=== PATIENT | female | born 1985 | race Caucasian/White ===

== ENCOUNTER 2019-08-06 19:30 | Emergency (ER) | payer OTHER, SELFPAY | END 2019-08-06 22:30 | disposition home or self-care (01) | PROVIDERS: Emergency Provider Family Medicine; Family Provider Family Medicine; Visit Provider Family Medicine | DX: J00 Acute nasopharyngitis [common cold] (principal); J04.0 Acute laryngitis; K21.9 Gastro-esophageal reflux disease without esophagitis | CPT/HCPCS: 71046; 87804 ×2; 96372; 99284; J1100 ==

== ENCOUNTER 2019-08-09 17:18 | Emergency (ER) | payer SELFPAY ==
[2019-08-09 18:36] VITALS: BP 133/90; PULSE 105; RESP 18; TEMP 36.7; O2SAT 98; BMI 38.7
--- NOTE | 2019-08-09 20:01 | ED_ITS ---
Entered by Lashonda Zamora, acting as scribe for Aug 09, 2019 17:18 HPI - Headache General: Chief Complaint: Headache Stated Complaint: ear clogged, reyna x3 days Time Seen by Provider: 08/09/19 20:00 Source: patient Mode of arrival: ambulatory Limitations: no limitations History of Present Illness: HPI Narrative: 33 yo female presents with cough and congestion. pt states this started 3 days ago. pt has had a headache. pt states she was seen a few days ago in the ED and they put her on a Zpac but no relief when finished. pt has had ear pain and clogged ears. pt denies any other symptoms at this time. MD elicited complaint: headache Onset (ago): day(s) (3 days ago) Onset description: gradually Severity: moderate Quality & Timing: throbbing Exacerbating factors: none Relieving factors: nothing Context: occurred at rest Associated symptoms: Reports cough and other (congestion); Deny chest pain, fever(s), nausea, rash or vomiting Treatments prior to arrival: acetaminophen Review of Systems Const: Denies: fever or chills Eyes: Reports: eye discharge; Denies: change in vision ENMT: Reports: ear pain; Denies: throat pain or mouth pain Card: Denies: chest pain Resp: Denies: shortness of breath GI: Denies: abdominal pain, nausea, vomiting or diarrhea : Denies: difficulty urinating Musc: Denies: back pain or joint pain Skin/Breast: Denies: rash Neuro: Reports: headache; Denies: behavioral changes Psych: Denies: depression Endo: Denies: excessive urination Denny/Lymph: Denies: easy bruising All/Imm: Denies: hives PFSH ED PFSH: Statuses (acute, chronic, etc) shown below reflect problem list status as previously entered and may not be historically accurate Social History Smoking and tobacco status: never smoked Female Reproductive History: Date of last menstrual period: 07/31/19 Physical Exam Const: COMMON NORMALS: no apparent distress and healthy appearing HENMT: COMMON NORMALS: normocephalic and external nose normal HEAD & SCALP: normocephalic NOSE: external nose normal and no nasal discharge (nasal dischage) OTHER: Left tympanic membrane is red with fluid behind ear. Also has tenderness over sinuses. Eye: COMMON NORMALS: PERRL PUPIL: Yes PERRL Neck/C-Spine: COMMON NORMALS: full ROM and no lymphadenopathy Chest: COMMONS NORMALS: inspection of chest normal Resp: COMMON NORMALS: normal respiratory effort and clear to auscultation bilaterally AUSCULTATION: clear to auscultation bilaterally Cardio: COMMON NORMALS: regular rate and regular rhythm RATE: regular rate RHYTHM: regular rhythm GI: COMMON NORMALS: soft to palpation PALPATION: Yes soft Extremity: COMMON NORMALS: normal to inspection, full ROM and normal capillary refill Psych: COMMON NORMALS: mental status grossly normal and cooperative Skin: COMMON NORMALS: no rashes or lesions noted GENERAL SKIN EXAM: no rashes or lesions noted Course Vital Signs: Vital signs: Vital Signs Temperature 98.0 F 08/09/19 18:36 Pulse Rate 105 H 08/09/19 18:36 Respiratory Rate 18 08/09/19 18:36 Blood Pressure 133/90 08/09/19 18:36 Pulse Oximetry 98 08/09/19 18:36 MDM - Headache MDM Narrative: Medical decision making narrative: Patient presents here with headache likely from sinusitis. Patient is well-appearing here and is stable for discharge. Patient has no signs of meningitis or subarachnoid hemorrhage. We will place her on Keflex. She is to take a decongestant along with Benadryl. Discharge Plan Discharge Patient Disposition: Home, Self-Care Clinical Impression: Acute otitis media, left Sinusitis Qualifiers: Sinusitis location: frontal Chronicity: acute Recurrence: non-recurrent Qualified Code(s): J01.10 - Acute frontal sinusitis, unspecified Headache Qualifiers: Headache type: tension-type Condition: Stable Prescriptions: New Keflex 500 mg capsule 500 mg PO Q6H 7 Days Qty: 28 RF: 0 EC-Naprosyn 500 mg tablet,delayed release (DR/EC) 500 mg PO BID PRN (Reason: pain) Qty: 20 RF: 0 No Action Pending RF: 0 Discharge Orders: Discharge Order (Routine); Ordered 08/09/19 Ordered By: Teresa Deluca Referrals: Molina Ojeda MD [Primary Care Provider] - (in 3-5 days) Discharge Diet: Advance as tolerated Discharge Activity: Resume usual activity Patient Instructions: Sinusitis (ED) Coding Level of Care Code ED Zoning Assistant for Chg Fwd The documentation recorded by the Noah alonso Bridget Annette, accurately reflects the service I personally performed and the decisions made by me, Teresa Deluca MD Aug 09, 2019 17:18
[2019-08-09 20:11] VITALS: BP 136/87; PULSE 108; RESP 16; O2SAT 97
[2019-08-09] MEDS: ketorolac 60 mg/2 mL INJ IM (20:22)
[2019-08-09] MEDS: dexamethasone 10 mg/mL INJ IM (20:22)
[2019-08-09] MEDS: diphenhydrAMINE 50 mg/mL SDV 1mL IM (20:22)
[2019-08-09 20:27] VITALS: BP 137/84; PULSE 116; RESP 16; TEMP 36.8; O2SAT 97
== END 2019-08-09 20:29 | disposition home or self-care (01) ==
PROVIDERS: Emergency Provider Emergency Medicine; Family Provider Family Medicine; PCP Family Medicine
DX: G44.209 Tension-type headache, unspecified, not intractable (principal); J01.10 Acute frontal sinusitis, unspecified; H66.92 Otitis media, unspecified, left ear
CPT/HCPCS: 96372; 99281; J1100; J1200; J1885

== ENCOUNTER 2020-02-10 11:10 | Emergency (ER) | payer SELFPAY ==
--- NOTE | 2020-02-10 11:17 | XRR_ITS ---
PROCEDURE INFORMATION: Exam: XR Right Ankle Exam date and time: 02/10/2020 11:18 AM Age: 34 years old Clinical indication: Pain; Ankle; Right; Additional info: Injury, fall, abrasion on hay[place] TECHNIQUE: Imaging protocol: XR Right ankle. Views: 3 or more views. COMPARISON: No relevant prior studies available. FINDINGS: Bones/joints: Mixed density 1.6 cm lesion in the lateral malleolus which could represent fibrous dysplasia versus cartilaginous lesion versus other lesion. Correlation with nonemergent MRI may be helpful. Soft tissues: Normal. XR/XR ankle RT min 3V* [id number] IMPRESSION: 1. Mixed density 1.6 cm lesion in the lateral malleolus which could represent fibrous dysplasia versus cartilaginous lesion versus other lesion. Correlation with nonemergent MRI may be helpful. 2. No acute findings.
--- NOTE | 2020-02-10 11:17 | XRR_ITS ---
PROCEDURE INFORMATION: Exam: XR Left Knee Exam date and time: 02/10/2020 12:10 PM Age: 34 years old Clinical indication: Injury or trauma; Fall; Initial encounter; Abrasion; Knee; Right; Injury date: Today TECHNIQUE: Imaging protocol: XR Left knee. Views: 3 views. COMPARISON: No relevant prior studies available. FINDINGS: Bones/joints: Normal. Soft tissues: Normal. XR/XR knee LT 3V* [id number] IMPRESSION: No acute findings.
[2020-02-10 11:18] VITALS: BP 116/67; PULSE 90; RESP 18; TEMP 36.6; O2SAT 97; BMI 33.9
--- NOTE | 2020-02-10 11:52 | W.ED.EXTPRO ---
HPI - Extremity Problem General: Chief complaint: Extremity Injury, Lower Stated complaint: left knee pain/injury Time Seen by Provider: 02/10/20 11:43 Source: patient Mode of arrival: ambulatory Limitations: no limitations History of Present Illness: HPI Narrative: 34-year-old female who states she fell last night at a [employer] show. She states she twisted her right ankle very slightly but then she fell on her right knee twisting it and landing on the knee. She states she has had pain along with instability in that knee since the fall. She states is much worse when she tries to bear weight. Denies any other injuries. Complaint: extremity pain Onset (ago): day(s) Pain Consistency: constant Location: left Severity scale (1-10): 6 Relieving factors: immobilization Exacerbating factors: weight bearing Associated symptoms: Deny chest pain, fever(s) or rash Review of Systems Const: Denies: fever(s), chills, body aches or change in appetite Eyes: Denies: blurry vision or eye discomfort ENMT: Denies: throat pain or dental pain Card: Denies: chest pain Resp: Denies: dyspnea GI: Denies: abdominal pain, nausea, vomiting or diarrhea : Denies: dysuria Musc: Reports: joint pain; Denies: neck pain or back pain Skin/Breast: Denies: rash Neuro: Denies: headache(s) Psych: Denies: depression Denny/Lymph: Denies: easy bruising All/Imm: Denies: urticaria PFSH ED PFSH: Social History Smoking and tobacco status: never smoked Alcohol intake: never Substance/Drug Use: never Female Reproductive History: Date of last menstrual period: 01/30/20 Physical Exam Const: COMMON NORMALS: no acute distress, patient oriented x3 and healthy appearing HENMT: COMMON NORMALS: normocephalic and atraumatic HEAD & SCALP: normocephalic and atraumatic Eye: COMMON NORMALS: Equal, round and reactive pupils present and EOMs intact bilaterally PUPIL: Yes Equal, round and reactive pupils present Neck/C-Spine: COMMON NORMALS: full ROM and supple Chest: COMMONS NORMALS: normal inspection of the chest and normal palpation of entire chest wall Resp: COMMON NORMALS: normal respiratory effort, No retractions, No use of accessory muscles and clear to auscultation bilaterally AUSCULTATION: clear to auscultation bilaterally Cardio: COMMON NORMALS: regular rate, regular rhythm and No murmurs present (Cardio) RATE: regular rate RHYTHM: regular rhythm GI: COMMON NORMALS: Normal to inspection, nondistended, normoactive bowel sounds present, Soft to palpation, non-tender and no masses PALPATION: Yes Soft to palpation Extremity: COMMON NORMALS: normal to inspection NARRATIVE EXTREMITY EXAM: Abrasion to left knee along with tenderness and slight swelling. She does have pain with range of motion. Very minimal pain to right ankle and very slight swelling. She is able to bear weight on the right ankle. No hip tenderness. Neuro: COMMON NORMALS: patient oriented x3, moves all extremities and no focal motor deficits Psych: COMMON NORMALS: mental status grossly normal, Normal thought process present and cooperative THOUGHT PROCESS: Normal thought process present Skin: COMMON NORMALS: no rashes or lesions noted and no wounds GENERAL SKIN EXAM: no rashes or lesions noted Course Vital Signs: Vital signs: Vital Signs Temperature 98 F 02/10/20 11:18 Pulse Rate 90 02/10/20 11:18 Respiratory Rate 18 02/10/20 11:18 Blood Pressure 116/67 02/10/20 11:18 Pulse Oximetry 97 02/10/20 11:18 MDM - Extremity (Nontraumatic) MDM Narrative: Medical decision making narrative: Patient presents here with right knee sprain from a fall. Patient's x-rays here are negative. Will place in a knee immobilizer and she is to follow-up with orthopedics in 2 to 4 days. Imaging Data^: xr l knee: Attestation: I personally reviewed and interpreted this imaging study as follows: My impression: no acute abnormality x r ankle: Attestation: I personally reviewed and interpreted this imaging study as follows: My impression: no acute abnormality Discharge Plan Discharge Patient Disposition: Home, Self-Care Clinical Impression: Left knee sprain Qualifiers: Encounter type: initial encounter Involved ligament of knee: unspecified ligament Qualified Code(s): S83.92XA - Sprain of unspecified site of left knee, initial encounter Condition: Stable Prescriptions: New Naprosyn 500 mg tablet 500 mg PO BID PRN (Reason: pain) Qty: 20 RF: 0 No Action Pending RF: 0 EC-Naprosyn 500 mg tablet,delayed release (DR/EC) 500 mg PO BID PRN (Reason: pain) Qty: 20 RF: 0 Discharge Orders: Discharge Order (Routine); Ordered 02/10/20 Ordered By: Teresa Deluca Referrals: Dario Monroy MD [Physician] - 1-3 days Molina Ojeda MD [Primary Care Provider] - Discharge Diet: Advance as tolerated Discharge Activity: Resume usual activity Patient Instructions: Knee Sprain (ED), Knee Immobilizer (ED) Stand Alone Forms: Work/School Release Coding Level of Care Code ED Health And Social Care Teacher for Chg Fwd Exam Comprehensive
[2020-02-10 12:42] VITALS: PULSE 87; RESP 18; O2SAT 97
--- NOTE | 2020-02-11 09:55 | DCPLANNER ---
oracle database manager had message to schedule a follow up appointment for patient with ortho. oracle database manager called the ortho clinic, spoke with Pat, gave clinic patients information. oracle database manager was told that patients information would be printed and reviewed. Clinic will call patient with appointment information.
--- NOTE | 2020-02-18 15:04 | DCPLANNER ---
Patient has a follow up appointment scheduled for Wednesday, February 19, [address] at 9:[address] Monroy. Clinic will call patient with appointment information.
--- NOTE | 2020-02-20 15:11 | DCPLANNER ---
Patient did attend appointment scheduled for 02.19.20 with ortho.
== END 2020-02-10 12:44 | disposition home or self-care (01) ==
PROVIDERS: Emergency Provider Emergency Medicine; PCP Family Medicine
DX: S83.92XA Sprain of unspecified site of left knee, initial encounter (principal); X50.1XXA Overexertion from prolonged static or awkward postures, initial encounter
CPT/HCPCS: 12345; 29530; 73562; 73610; 99281; 99283; E0114

== ENCOUNTER 2020-02-27 11:01 | Outpatient (CLI) | payer BC, SELFPAY ==
--- NOTE | 2020-02-27 11:10 | MR_ITS ---
WS: [id number] MRI LEFT KNEE NONCONTRAST TECHNIQUE: Axial PD, coronal PD fat sat, coronal PD, sagittal PD, and sagittal PD fat-sat images obta ined. CLINICAL INFORMATION: KNEE INJURY, EFFUSION OF LEFT KNEE COMPARISON: None. FINDINGS: Normal anterior cruciate ligament. Normal PCL. Distal quadriceps and patella tendons are intact. Diff use subchondral edema involving the lateral tibial plateau with tibial plateau osteochondral fracture measuring 1.7 x 0.5 CM. Edema involving the lateral tibial plateau. Medial tibial plateau is normal. Normal bone marrow signal in the lateral femoral condyle. Medial and lateral meniscus are normal. Medial and lateral collateral ligaments are intact. Slightly hypertrophic patella. Normal patella car tilage. No subchondral edema. Mild soft tissue edema about the tibial plateau. MR/MR knee LT wo con* [id number] IMPRESSION: 1. Osteochondral fracture involving the lateral tibial plateau measuring 1.7 x 0.5 cm AP by transverse. Moderate diffuse edema involving the lateral tibial p lateau. No significant depression. 2. Anterior and posterior cruciate ligaments are intact. 3. Medial and lateral meniscus are intact. 4. Mild soft tissue edema about the joint line.
== END 2020-02-27 11:02 | disposition home or self-care (01) ==
LOC: RADWPI 11:10
PROVIDERS: Family Provider Family Medicine; PCP Family Medicine; Visit Provider Orthopaedic Surgery
DX: S82.142A Displaced bicondylar fracture of left tibia, initial encounter for closed fracture; S89.92XA Unspecified injury of left lower leg, initial encounter; X58.XXXA Exposure to other specified factors, initial encounter; M25.462 Effusion, left knee; R60.9 Edema, unspecified
CPT/HCPCS: 73721

== ENCOUNTER → 2020-04-01 10:11 | Outpatient (BNVA) | payer BC, SELFPAY | PROVIDERS: Family Provider Family Medicine; PCP Family Medicine; Visit Provider Orthopaedic Surgery | DX: S82.122D Displaced fracture of lateral condyle of left tibia, subsequent encounter for closed fracture with routine healing (principal); W19.XXXD Unspecified fall, subsequent encounter | CPT/HCPCS: 73562 ==

== ENCOUNTER 2020-10-14 12:00 | Outpatient (CLI) | payer BC, SELFPAY | END 2020-10-14 12:01 | disposition home or self-care (01) | LOC: SLEEP 10-22 16:06 | PROVIDERS: Family Provider Family Medicine; PCP Family Medicine; Visit Provider Family Medicine | DX: G47.10 Hypersomnia, unspecified (principal); R06.83 Snoring; R53.83 Other fatigue; G47.33 Obstructive sleep apnea (adult) (pediatric) | CPT/HCPCS: G0399 ==

== ENCOUNTER 2021-02-04 00:14 | Emergency (ER) | payer BC, SELFPAY ==
[2021-02-04 00:42] VITALS: BP 134/83; PULSE 100; RESP 16; TEMP 37; O2SAT 99; BMI 42.7
--- NOTE | 2021-02-04 01:25 | XRR_ITS ---
PROCEDURE INFORMATION: Exam: XR Chest Exam date and time: 02/04/2021 1:25 AM Age: 35 years old Clinical indication: Dyspnea; Additional info: SOB and chest tightness TECHNIQUE: Imaging protocol: XR of the chest. Views: 1 view. COMPARISON: CR Chest 2 views* [id number] 08/06/2019 8:02 PM FINDINGS: Lungs: There are multiple calcified pulmonary nodules consistent with prior granulomatous disease. Pleural spaces: Unremarkable. No pleural effusion. No pneumothorax. Heart/Mediastinum: Unremarkable. No cardiomegaly. Bones/joints: Unremarkable. XR/XR chest 1V portable [id number] IMPRESSION: No acute disease.
--- NOTE | 2021-02-04 01:25 | ECG_ITS ---
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 Measurements Intervals [place] Rate: 82 P: 76 IL: 134 QRS: 54 QRSD: 84 T: 21 QT: 375 QTc: 439 Interpretive Statements SINUS RHYTHM No previous ECG available for comparison Electronically Signed On 02-05-2021 7:04:30 CDT by Eva Esqueda M.D. [email or web address]
--- NOTE | 2021-02-04 01:26 | ED_ITS ---
HPI - Extremity Problem General: Chief complaint: Extremity Injury, Lower Stated complaint: swollen feet, back pain, headache, sob Time Seen by Provider: 02/04/21 00:15 History of Present Illness: HPI Narrative: Patient is a 35-year-old female comes to the ED with bilateral lower extremity swelling and pain and shortness of breath/chest tightness. This weekend patient says she was at the [place] [employer] and she had to walk from 1 side of the stadium to the other side and states that she developed some shortness of breath that seemed more than usual. That occurred approximately 2 days ago and she says she has had some shortness of breath and chest tightness ever since. She says the chest tightness and shortness of breath gets worse when she gets up and moves around. She also reports that since she was at the [employer] she has bilateral lower extremity swelling and pain. She says the bilateral lower extremity pain is described as pain due to the tightness in her skin from all the swelling. Patient does endorse having history of anxiety and panic attacks. Associated symptoms: Reports chest pain (chest tightness); Deny fever(s) or rash Review of Systems Const: Denies: fever(s), chills or fatigue Eyes: Denies: change in vision or eye discomfort ENMT: Denies: throat pain, odynophagia, nasal discharge or nasal congestion Card: Reports: chest pain (chest tightness) and edema (Bilateral lower extremity edema); Denies: palpitations, swelling of feet/ankles, dyspnea on exertion or orthopnea Resp: Reports: dyspnea (when active or upon exertion); Denies: productive cough or non-productive cough GI: Denies: abdominal pain, nausea, vomiting, diarrhea, constipation or hematochezia : Denies: flank pain, dysuria or hematuria Musc: Reports: extremity pain (Bilateral lower extremity) and extremity swelling (Bilateral lower extremity); Denies: neck pain or back pain Skin/Breast: Denies: rash or new lesions Neuro: Denies: headache(s), numbness in extremities or weakness in extremities PFS ED PFSH: Social History Smoking and tobacco status: never smoked Alcohol intake: never Female Reproductive History: Date of last menstrual period: 01/19/21 Physical Exam Const: COMMON NORMALS: no acute distress, patient oriented x3 and alert GENERAL APPEARANCE: cooperative and comfortable NUTRITIONAL APPEARANCE: obese HENMT: COMMON NORMALS: normocephalic HEAD & SCALP: normocephalic MOUTH: Normal oral and palatal mucosa present THROAT: posterior oropharynx normal and uvula midline Neck/C-Spine: COMMON NORMALS: supple GENERAL: Yes normal visual inspection Resp: COMMON NORMALS: normal respiratory effort, No retractions, No use of accessory muscles and clear to auscultation bilaterally AUSCULTATION: clear to auscultation bilaterally Cardio: COMMON NORMALS: regular rate, regular rhythm, S1 normal heart sound present, S2 normal heart sound present, No gallops present (Cardio), No clicks present (Cardio), No murmurs present (Cardio) and Peripheral pulses 2+ throughout RATE: regular rate RHYTHM: regular rhythm HEART SOUNDS: S1 normal heart sound present and S2 normal heart sound present PERIPHERAL PULSES: Peripheral pulses 2+ throughout GI: COMMON NORMALS: Normal to inspection, nondistended, normoactive bowel sounds present, Soft to palpation, non-tender and no masses PALPATION: Yes Soft to palpation : COMMON NORMALS: Yes no CVA tenderness BLADDER/KIDNEY EXAM: Yes no CVA tenderness Back/Pelvis: COMMON NORMALS: no CVA tenderness Extremity: COMMON NORMALS: no calf tenderness GENERAL: Yes edema (Bilateral lower extremity 1+ pitting edema) Neuro: COMMON NORMALS: patient oriented x3 and moves all extremities SENSORIUM/ORIENTATION: Yes alert Skin: GENERAL SKIN EXAM: dry skin Course Reevaluation(s): Reevaluation #1: After patient received some Ativan here in the ED she said her chest pain and shortness of breath improved greatly. Vital Signs: Vital signs: Vital Signs Temperature 98.6 F 02/04/21 00:42 Pulse Rate 87 02/04/21 02:17 Respiratory Rate 17 02/04/21 02:17 Blood Pressure 135/88 02/04/21 02:17 Pulse Oximetry 97 02/04/21 02:17 MDM - Extremity (Nontraumatic) MDM Narrative: Medical decision making narrative: Patient is a 35-year-old female comes to the ED with bilateral lower extremity edema, shortness of breath/chest tightness. She has a history of anxiety and panic attacks. Patient is obese and states that her shortness of breath/chest tightness gets worse when she is up and moving around. Denies any cough, history of DVTs or blood clots. Patient appears nontoxic and in no acute distress or pain. Lungs are clear to auscultation bilaterally. She has 1+ pitting edema in her lower extremities bilaterally. Potassium 3.3 the rest of CBC and CMP were unremarkable. EKG showed normal sinus rhythm with no ST segment elevation or depression seen. Troponin negative. D-dimer normal at 0.38. hCG negative. Chest x-ray showed no acute findings. Patient was given Ativan here in the ED and chest pain/shortness of breath improved. Patient was also given some oral potassium while here in the ED. Patient diagnosed with bilateral lower extremity edema, hypokalemia and noncardiac chest pain. She was told to follow- up with her PCP in 7 to 10 days for reevaluation. Return to ED precautions given. Elevate lower extremities bilaterally and wear compression stockings throughout the day. Patient understood and agree with plan. Lab Data: Attestation: I reviewed the patient's lab results. Labs: Lab Results 02/04/21 02/04/21 02/04/21 Range/Units 01:51 01:51 01:51 WBC 11.8 H (4.0-10.0) 10^3/ uL RBC 4.40 (4.1-5.3) 10^6/u L Hgb 11.3 L (11.5-15.3) g/dL Hct 36.2 L (37.0-47.0) % MCV 82.3 (81-99) fL MCH 25.7 L (28.0-34.0) pg MCHC 31.2 (30.0-36.0) g/dL RDW 15.6 H (12.1-15.1) % Plt Count 395 (130-400) 10^3/c mm MPV 10.0 (7.4-10.4) fL Neut % (Auto) 60.3 % Lymph % (Auto) 29.9 % [place] % (Auto) 7.4 % Eos % (Auto) 1.4 % Baso % (Auto) 0.6 % Neut # (Auto) 7.13 (1.8-7.7) 10^3/u L Lymph # (Auto) 3.5 (0.8-4.8) 10^3/u L [place] # (Auto) 0.9 (0.2-0.9) 10^3/u L Eos # (Auto) 0.2 (0.0-0.8) 10^3/u L Baso # (Auto) 0.1 (0.0-0.1) 10^3/u L Nucleated RBC % (a uto) 0 % Nucleated RBCs # 0.0 /100WBC D-Dimer 0.38 (0-0.59) ug/mIFE U Sodium 137 (136-145) mmol/L Potassium 3.3 L (3.5-5.1) mmol/L Chloride 101 (98-107) mmol/L Carbon Dioxide 24 (22-29) mmol/L Anion Gap 15.3 (5-19) BUN 8 (6-20) mg/dL Creatinine 0.7 (0.5-0.9) mg/dL GFR Calculation 95.8 (90-130) mL/min Glucose 106 (65-115) mg/dL Calculated Osmolal ity 283 L (285-295) mOsm/k g Calcium 8.8 (8.5-10.5) mg/dL Total Bilirubin 0.8 (0.15-1.2) mg/dL AST 18 (0-32) U/L ALT 26 (0-33) U/L Alkaline Phosphata se 84 (35-105) IU/L Troponin T Baselin e (0-10) ng/L Total Protein 6.4 L (6.6-8.7) g/dL Albumin 4.1 (3.5-5.2) g/dL Globulin 2.3 (1.3-4.6) g/dL HCG, Qual (Negative) 02/04/21 02/04/21 Range/Units 01:51 01:51 WBC (4.0-10.0) 10^3/ uL RBC (4.1-5.3) 10^6/u L Hgb (11.5-15.3) g/dL Hct (37.0-47.0) % MCV (81-99) fL MCH (28.0-34.0) pg MCHC (30.0-36.0) g/dL RDW (12.1-15.1) % Plt Count (130-400) 10^3/c mm MPV (7.4-10.4) fL Neut % (Auto) % Lymph % (Auto) % [place] % (Auto) % Eos % (Auto) % Baso % (Auto) % Neut # (Auto) (1.8-7.7) 10^3/u L Lymph # (Auto) (0.8-4.8) 10^3/u L [place] # (Auto) (0.2-0.9) 10^3/u L Eos # (Auto) (0.0-0.8) 10^3/u L Baso # (Auto) (0.0-0.1) 10^3/u L Nucleated RBC % (a uto) % Nucleated RBCs # /100WBC D-Dimer (0-0.59) ug/mIFE U Sodium (136-145) mmol/L Potassium (3.5-5.1) mmol/L Chloride (98-107) mmol/L Carbon Dioxide (22-29) mmol/L Anion Gap (5-19) BUN (6-20) mg/dL Creatinine (0.5-0.9) mg/dL GFR Calculation (90-130) mL/min Glucose (65-115) mg/dL Calculated Osmolal ity (285-295) mOsm/k g Calcium (8.5-10.5) mg/dL Total Bilirubin (0.15-1.2) mg/dL AST (0-32) U/L ALT (0-33) U/L Alkaline Phosphata se (35-105) IU/L Troponin T Baselin e 6 (0-10) ng/L Total Protein (6.6-8.7) g/dL Albumin (3.5-5.2) g/dL Globulin (1.3-4.6) g/dL HCG, Qual Negative (Negative) Imaging Data^: CXR: Attestation: I personally reviewed and interpreted this imaging study as follows: My impression: Chest x-ray is unremarkable. Radiologist's impression: [address] [id number] ReportSigned Patient: Vanda EastonUngildardo #: [id number]: 1985Acct#:[id number]/Sex: 35 / FADM Date: 02/04/21Loc: ERRoom/Bed:Attending Dr: Ordering Provider/Ordering MD: Anil Haque Date of Service: 02/04/21 Procedure(s): XR chest 1V portable [id number] Accession Number(s): [id number] Report Number: [id number] PROCEDURE INFORMATION: Exam: XR Chest Exam date and time: 02/04/2021 1:25 AM Age: 35 years old Clinical indication: Dyspnea; Additional info: SOB and chest tightness TECHNIQUE: Imaging protocol: XR of the chest. Views: 1 view. COMPARISON: CR Chest 2 views* [id number] 08/06/2019 8:02 PM FINDINGS: Lungs: There are multiple calcified pulmonary nodules consistent with prior granulomatous disease. Pleural spaces: Unremarkable. No pleural effusion. No pneumothorax. Heart/Mediastinum: Unremarkable. No cardiomegaly. Bones/joints: Unremarkable. XR/XR chest 1V portable [id number] IMPRESSION: No acute disease. Dictated By:Adalberto Sellers By:Adalberto Sellers Date/Time:02/04/21 0323DD/ 0321 EKG Data^: EKG 1: Attestation: I personally reviewed and interpreted this EKG as follows: EKG interpretation date: 02/04/21 Interpretation: Normal sinus rhythm, 82 bpm, no ST segment elevation or depr ession seen. Nonacute EKG. Discharge Plan Discharge Patient Disposition: Home Clinical Impression: Bilateral edema of lower extremity, Non-cardiac chest pain, Hypokalemia Condition: Stable Prescriptions: No Action Naprosyn 500 mg tablet 500 mg PO BID PRN (Reason: pain) Qty: 20 RF: 0 Pending RF: 0 EC-Naprosyn 500 mg tablet,delayed release (DR/EC) 500 mg PO BID PRN (Reason: pain) Qty: 20 RF: 0 Discharge Orders: Discharge ED (Routine); Ordered 02/04/21 Ordered By: Anil Haque Referrals: Molina Ojeda MD [Primary Care Provider] - Discharge Diet: Regular Discharge Activity: Resume usual activity Patient Instructions: Hypokalemia (ED), Leg Edema (ED), Noncardiac Chest Pain (ED) Activity Restrictions/Additional Instructions: Follow-up with medical provider as directed in 7 to 10 days for reevaluation. Elevate lower extremities daily to help with swelling. Also wear compression stockings on lower extremities to help with swelling as well. Continue taking all home medications as prescribed. Return to the ER or your medical provider if condition worsens. Please read and understand discharge instructions. Thank you for choosing [facility] for your healthcare needs today. Please realize this is an emergency room and that we are providing you with a medical screening exam and this may not be complete and all inclusive of all the testing and or work up that you may need to determine your ailment or severity of your illness. It is very important that you follow up as instructed or that you return to the Emergency Department should you have concerns or if your condition changes or worsens in any way. Coding Level of Care Code ED Quick Mixer Operator for Shakir Medel Exam Comprehensive
[2021-02-04 02:09] LABS: HCG, Serum Qual Negative (Negative)
[2021-02-04 02:10] LABS: Basophils # 0.1 10^3/uL (0.0-0.1); Basophils % 0.6 %; Eosinophils # 0.2 10^3/uL (0.0-0.8); Eosinophils % 1.4 %; Hematocrit 36.2 % (37.0-47.0); Hemoglobin 11.3 g/dL (11.5-15.3); Lymphocytes # 3.5 10^3/uL (0.8-4.8); Lymphocytes % 29.9 %; Mean Corpuscular HGB Conc 31.2 g/dL (30.0-36.0); Mean Corpuscular Hemoglobin 25.7 pg (28.0-34.0); Mean Corpuscular Volume 82.3 fL (81-99); Monocytes # 0.9 10^3/uL (0.2-0.9); Monocytes % 7.4 %; Neutrophils # 7.13 10^3/uL (1.8-7.7); Neutrophils % 60.3 %; Nucleated Red Blood Cells % 0 %; Platelet Count 395 10^3/cmm (130-400); Red Cell Distribution Width 15.6 % (12.1-15.1); White Blood Count 11.8 10^3/uL (4.0-10.0)
[2021-02-04 02:14] LABS: D Dimer 0.38 ug/mIFEU (0-0.59)
[2021-02-04 02:17] VITALS: BP 135/88; PULSE 87; RESP 17; O2SAT 97
[2021-02-04 02:17] LABS: Troponin(5th) Baseline 6 ng/L (0-10)
[2021-02-04 02:18] LABS: Alanine Aminotransferase 26 U/L (0-33); Albumin Level 4.1 g/dL (3.5-5.2); Alkaline Phosphatase 84 IU/L (35-105); Anion Gap 15.3 (5-19); Aspartate Amino Transferase 18 U/L (0-32); Blood Urea Nitrogen 8 mg/dL (6-20); Calcium 8.8 mg/dL (8.5-10.5); Carbon Dioxide 24 mmol/L (22-29); Chloride 101 mmol/L (98-107); Creatinine Clr Calc Pharmacy 149.5603; Globulin 2.3 g/dL (1.3-4.6); Glomerular Filtration Rate 95.8 mL/min (90-130); Glucose 106 mg/dL (65-115); Osmolality Calculated 283 mOsm/kg (285-295); Potassium 3.3 mmol/L (3.5-5.1); Sodium 137 mmol/L (136-145); Total Bilirubin 0.8 mg/dL (0.15-1.2); Total Protein 6.4 g/dL (6.6-8.7)
[2021-02-04] MEDS: LORazepam 2 mg/mL INJ 1 mL 1 MG IVP (02:31)
[2021-02-04] MEDS: potassium chloride ER 20 mEq Tablet PO (02:33)
== END 2021-02-04 03:09 | disposition home or self-care (01) ==
PROVIDERS: Emergency Provider Physician Assistant; PCP Family Medicine
DX: R60.0 Localized edema (principal); R07.89 Other chest pain; E87.6 Hypokalemia
CPT/HCPCS: 71045; 80053; 84484; 84703; 85025; 85378; 93005; 96374; 99284; J2060

== ENCOUNTER 2021-02-09 15:41 | Emergency (ER) | payer BC, SELFPAY ==
[2021-02-09 15:48] VITALS: BP 134/69; PULSE 127; RESP 20; TEMP 36.9; O2SAT 96; BMI 43.5
--- NOTE | 2021-02-09 17:06 | XRR_ITS ---
PROCEDURE INFORMATION: Exam: XR Chest Exam date and time: 02/09/2021 5:06 PM Age: 35 years old Clinical indication: Shortness of breath; Additional info: SOB TECHNIQUE: Imaging protocol: XR of the chest. Views: 1 view. Total images: 1 COMPARISON: CR (CHEST, ) 02/04/2021 1:34 AM FINDINGS: Lungs: No visible active interstitial or alveolar airspace disease. Pleural spaces: Unremarkable. No pleural effusion. No pneumothorax. Heart/Mediastinum: Unremarkable. No cardiomegaly. Bones/joints: Unremarkable. Other findings: Obesity. XR/XR chest 1V portable [id number] IMPRESSION: Nonacute.
--- NOTE | 2021-02-09 17:07 | ECG_ITS ---
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: : 1985 Requested By: Anil Haque Order Number: [id number] Raquel MD: DIMA DUMONT Measurements Intervals [place] Rate: 103 P: 50 [place]: 130 QRS: 3 QRSD: 75 T: 12 QT: 346 QTc: 453 Interpretive Statements SINUS TACHYCARDIA POSSIBLE ANTERIOR MYOCARDIAL INFARCTION [30 ms Q WAVE IN V3/V4, OR R < 0.2 mV IN V4], PROBABLY OLD ABNORMAL RHYTHM ECG Compared to ECG 02/04/2021 01:51:42 Myocardial infarct finding now present Sinus rhythm no longer present Electronically Signed On 02-10-2021 20:13:05 CDT by DIMA DUMONT [email or web address]
--- NOTE | 2021-02-09 17:08 | W.ED.SOB ---
HPI - SOB/Dyspnea General: Chief Complaint: Shortness of Breath/Dyspnea Stated Complaint: SOB/BLURRED VISION/HEADACHE Time Seen by Provider: 02/09/21 17:06 History of Present Illness: HPI Narrative: Patient is a 35-year-old female comes to the ED with shortness of breath, GOMES and blurred vision. Patient says today she woke up and she had headache with some bilateral blurry vision. Blurry vision has resolved before coming to the ED. The headache is located on the left temporal region of her head and she rates it a 4 out of 10. She describes the headache as a pulsing pain. She says she has a history of migraines and says this does not seem like one of her past migraines. Today she also woke up and felt like she had a elephant sitting on her chest. She describes the shortness of breath as a chest heaviness. Denies any nausea/vomiting, abdominal pain, bladder or bowel symptoms. Associated symptoms: Deny abdominal pain, chest pain, fever(s), nausea, orthopnea, palpitations or vomiting Review of Systems Const: Denies: fever(s), chills or fatigue Eyes: Reports: blurry vision (episode of bilateral blurry vision that has resolved); Denies: change in vision or eye discomfort ENMT: Denies: throat pain, odynophagia, nasal discharge or nasal congestion Card: Denies: chest pain, palpitations, edema, swelling of feet/ankles, dyspnea on exertion or orthopnea Resp: Denies: dyspnea, productive cough or non-productive cough GI: Denies: abdominal pain, nausea, vomiting, diarrhea, constipation or hematochezia : Denies: flank pain, dysuria or hematuria Musc: Denies: neck pain, back pain or extremity swelling Skin/Breast: Denies: rash or new lesions Neuro: Reports: headache(s); Denies: numbness in extremities or weakness in extremities PFS ED PFSH: Social History Smoking and tobacco status: never smoked Alcohol intake: never Female Reproductive History: Date of last menstrual period: 01/19/21 Physical Exam Const: COMMON NORMALS: no acute distress, patient oriented x3 and alert GENERAL APPEARANCE: cooperative and comfortable NUTRITIONAL APPEARANCE: obese HENMT: COMMON NORMALS: normocephalic HEAD & SCALP: normocephalic MOUTH: Normal oral and palatal mucosa present THROAT: posterior oropharynx normal and uvula midline Neck/C-Spine: COMMON NORMALS: supple GENERAL: Yes normal visual inspection Resp: COMMON NORMALS: normal respiratory effort, No retractions, No use of accessory muscles and clear to auscultation bilaterally AUSCULTATION: clear to auscultation bilaterally Cardio: COMMON NORMALS: regular rate, regular rhythm, S1 normal heart sound present, S2 normal heart sound present, No gallops present (Cardio), No clicks present (Cardio), No murmurs present (Cardio) and Peripheral pulses 2+ throughout RATE: regular rate RHYTHM: regular rhythm HEART SOUNDS: S1 normal heart sound present and S2 normal heart sound present PERIPHERAL PULSES: Peripheral pulses 2+ throughout GI: COMMON NORMALS: Normal to inspection, nondistended, normoactive bowel sounds present, Soft to palpation, non-tender and no masses INSPECTION: Yes central obesity PALPATION: Yes Soft to palpation : COMMON NORMALS: Yes no CVA tenderness BLADDER/KIDNEY EXAM: Yes no CVA tenderness Back/Pelvis: COMMON NORMALS: no CVA tenderness Extremity: COMMON NORMALS: normal to inspection Neuro: COMMON NORMALS: patient oriented x3, CN's II-XII intact bilaterally, moves all extremities, no focal motor deficits and no sensory deficits noted SENSORIUM/ORIENTATION: Yes alert COORDINATION/BALANCE: [id number] test normal SPEECH: speech normal SENSORY EXAM: Yes extremities (Intact with soft touch) MOTOR EXAM: 5/5 motor strength present throughout COORDINATION: [id number] test normal Skin: GENERAL SKIN EXAM: dry skin Course Reevaluation(s): Reevaluation #1: Patient was given DuoNeb breathing treatment while here in the ED. Afterwards she said her shortness of breath improved and she felt better. Vital Signs: Vital signs: Vital Signs Temperature 98.4 F 02/09/21 15:48 Pulse Rate 105 H 02/09/21 19:56 Respiratory Rate 16 02/09/21 19:56 Blood Pressure 120/89 02/09/21 19:56 Pulse Oximetry 97 02/09/21 19:21 MDM - SOB/Dyspnea MDM Narrative: Medical decision making narrative: Patient is a 35-year-old female comes to the ED with shortness of breath and some chest heaviness. She is also complaining of a headache and some blurring vision that resolved before she came to the ED. Vital stable and O2 sat 97% on room air and respirations 16. Exam is benign. Patient has a white blood cell count of 13.3 but the rest of his CBC and CMP were unremarkable. D-dimer normal at 0.44, troponin negative, hCG negative. EKG showed sinus tachycardia with no ST segment elevation or depression seen. Chest x-ray showed no acute findings. CT of head showed no acute findings. Patient was given DuoNeb breathing treatment and she says her symptoms improved greatly. She was diagnosed with noncardiac chest pain and dyspnea. She was sent home with a prescription for a Medrol Dosepak and an albuterol inhaler. She was told to follow-up with her PCP in 7 to 10 days reevaluation. Return to ED precautions given. Patient understood and agreed with plan. Lab Data: Labs: Lab Results 02/09/21 02/09/21 02/09/21 Range/Units 17:54 17:54 17:54 WBC Cancelled Corrected WBC Cancelled RBC Cancelled Hgb Cancelled Hct Cancelled MCV Cancelled MCH Cancelled MCHC Cancelled RDW Cancelled Plt Count Cancelled MPV Cancelled Gran % Cancelled Neut % (Auto) Cancelled Lymph % (Auto) Cancelled [place] % (Auto) Cancelled Eos % (Auto) Cancelled Baso % (Auto) Cancelled Neut # (Auto) Cancelled Lymph # (Auto) Cancelled [place] # (Auto) Cancelled Eos # (Auto) Cancelled Baso # (Auto) Cancelled Absolute Gran (aut o) Cancelled Nucleated RBC % (a uto) Cancelled Nucleated RBCs # Cancelled D-Dimer (0-0.59) ug/mIFE U Sodium 136 (136-145) mmol/L Potassium 3.5 (3.5-5.1) mmol/L Chloride 100 (98-107) mmol/L Carbon Dioxide 25 (22-29) mmol/L Anion Gap 14.5 (5-19) BUN 7 (6-20) mg/dL Creatinine 0.5 (0.5-0.9) mg/dL GFR Calculation 141.2 H (90-130) mL/min Glucose 75 (65-115) mg/dL Calculated Osmolal ity 279 L (285-295) mOsm/k g Calcium 8.8 (8.5-10.5) mg/dL Total Bilirubin 0.9 (0.15-1.2) mg/dL AST 22 (0-32) U/L ALT 25 (0-33) U/L Alkaline Phosphata se 92 (35-105) IU/L Troponin T Baselin e (0-10) ng/L Total Protein 7.0 (6.6-8.7) g/dL Albumin 4.1 (3.5-5.2) g/dL Globulin 2.9 (1.3-4.6) g/dL HCG, Qual Negative (Negative) 02/09/21 02/09/21 02/09/21 Range/Units 17:54 18:24 18:24 WBC 13.3 H Corrected WBC RBC 4.51 Hgb 11.5 Hct 37.1 MCV 82.3 MCH 25.5 L MCHC 31.0 RDW 15.6 H Plt Count 434 H MPV 10.1 Gran % Neut % (Auto) 65.1 Lymph % (Auto) 24.8 [place] % (Auto) 7.7 Eos % (Auto) 1.4 Baso % (Auto) 0.5 Neut # (Auto) 8.65 H Lymph # (Auto) 3.3 [place] # (Auto) 1.0 H Eos # (Auto) 0.2 Baso # (Auto) 0.1 Absolute Gran (aut o) Nucleated RBC % (a uto) 0 Nucleated RBCs # 0.0 D-Dimer 0.44 (0-0.59) ug/mIFE U Sodium (136-145) mmol/L Potassium (3.5-5.1) mmol/L Chloride (98-107) mmol/L Carbon Dioxide (22-29) mmol/L Anion Gap (5-19) BUN (6-20) mg/dL Creatinine (0.5-0.9) mg/dL GFR Calculation (90-130) mL/min Glucose (65-115) mg/dL Calculated Osmolal ity (285-295) mOsm/k g Calcium (8.5-10.5) mg/dL Total Bilirubin (0.15-1.2) mg/dL AST (0-32) U/L ALT (0-33) U/L Alkaline Phosphata se (35-105) IU/L Troponin T Baselin e 6 (0-10) ng/L Total Protein (6.6-8.7) g/dL Albumin (3.5-5.2) g/dL Globulin (1.3-4.6) g/dL HCG, Qual (Negative) Imaging Data^: CXR: Attestation: I personally reviewed and interpreted this imaging study as follows: Radiologist's impression: [facility] [address] [place] [id number] XRay Report Signed Patient: Vanda Easton Unit #: [id number] : 1985 Age/Sex: 35 / F ADM Date: 02/09/21 Loc: ER Room/Bed: Attending Dr: Ordering Provider/Ordering MD: Anil Haque Date of Service: 02/09/21 Procedure(s): XR chest 1V portable [id number] Accession Number(s): [id number] Report Number: [id number] PROCEDURE INFORMATION: Exam: XR Chest Exam date and time: 02/09/2021 5:06 PM Age: 35 years old Clinical indication: Shortness of breath; Additional info: SOB TECHNIQUE: Imaging protocol: XR of the chest. Views: 1 view. Total images: 1 COMPARISON: CR (CHEST, ) 02/04/2021 1:34 AM FINDINGS: Lungs: No visible active interstitial or alveolar airspace disease. Pleural spaces: Unremarkable. No pleural effusion. No pneumothorax. Heart/Mediastinum: Unremarkable. No cardiomegaly. Bones/joints: Unremarkable. Other findings: Obesity. XR/XR chest 1V portable [id number] IMPRESSION: Nonacute. Dictated By: Joe Layton Signed By: Joe Layton Signed Date/Time: 02/09/211744 DD/ 42 CT Head: Attestation: I personally reviewed and interpreted this imaging study as follows: Radiologist's impression: [facility] [address] [place] [id number] Scan Report Signed Patient: Vanda Easton Unit #: [id number] : 1985 Age/Sex: 35 / F ADM Date: 02/09/21 Loc: ER Room/Bed: Attending Dr: Ordering Provider/Ordering MD: Anil Haque Date of Service: 02/09/21 Procedure(s): CT head wo con* [id number] Accession Number(s): [id number] Report Number: [id number] PROCEDURE INFORMATION: Exam: CT Head Without Contrast Exam date and time: 02/09/2021 5:10 PM Age: 35 years old Clinical indication: Pain; Headache; Additional info: Headache and blurred vision TECHNIQUE: Imaging protocol: Computed tomography of the head without contrast. Total images: 192 Radiation optimization: All CT scans at this facility use at least one of these dose optimization techniques: automated exposure control; mA and/or kV adjustment per patient size (includes targeted exams where dose is matched to clinical indication); or iterative reconstruction. COMPARISON: No relevant prior studies available. RADIATION DOSE METRICS: Total DLP (mGy-cm): 852.23 FINDINGS: Brain: No evidence of active or acute intracranial pathologic process, hemorrhage, or trauma. No visible evidence of diffuse cerebral edema or generalized demyelination. No mass effect. No midline shift. No visible hyperdense MCA or insular ribbon sign. Cerebral ventricles: No ventriculomegaly. Paranasal sinuses: Opacification of the visualized left maxillary sinus suggesting chronic left maxillary sinusitis. Mastoid air cells: Visualized mastoid air cells are well aerated. Bones/joints: Unremarkable. No acute fracture. Soft tissues: Unremarkable. CT/CT head wo con* [id number] IMPRESSION: 1. No evidence of active or acute intracranial pathologic process, hemorrhage, or trauma. 2. Opacification of the visualized left maxillary sinus suggesting chronic left maxillary sinusitis. Radiation Dose CTDIVOL = (mGy): DLP = 852.23 (mGy-cm) Dictated By: Joe Layton Signed By: Joe Layton Signed Date/Time: 02/09/211819 DD/ 18 EKG Data^: EKG 1: Attestation: I personally reviewed and interpreted this EKG as follows: EKG Interpretation Date: 02/09/21 Interpretation: Sinus tachycardia, 103 bpm, no ST segment elevation or depression seen. Discharge Plan Discharge Patient Disposition: Home Clinical Impression: Non-cardiac chest pain Dyspnea Qualifiers: Dyspnea type: shortness of breath Qualified Code(s): R06.02 - Shortness of breath Condition: Stable Prescriptions: New albuterol sulfate 90 mcg/actuation HFA aerosol inhaler 2 inh inhalation Q6H PRN (Reason: shortness of breath or wheezing) Qty: 8.5 RF: 0 methylprednisolone 4 mg tablets,dose pack See Rx Instructions .ROUTE .COMPLEX Qty: 21 RF: 0 No Action Naprosyn 500 mg tablet 500 mg PO BID PRN (Reason: pain) Qty: 20 RF: 0 Pending RF: 0 EC-Naprosyn 500 mg tablet,delayed release (DR/EC) 500 mg PO BID PRN (Reason: pain) Qty: 20 RF: 0 Discharge Orders: Discharge ED (Routine); Ordered 02/09/21 Ordered By: Anil Haque Referrals: Molina Ojeda MD [Primary Care Provider] - Discharge Diet: Regular Discharge Activity: Resume usual activity Patient Instructions: Dyspnea (ED) Activity Restrictions/Additional Instructions: Follow-up with medical provider as directed in 7 to 10 days. Take medications as prescribed. Return to the ER or your medical provider if condition worsens. Please read and understand discharge instructions. Thank you for choosing [facility] for your healthcare needs today. Please realize this is an emergency room and that we are providing you with a medical screening exam and this may not be complete and all inclusive of all the testing and or work up that you may need to determine your ailment or severity of your illness. It is very important that you follow up as instructed or that you return to the Emergency Department should you have concerns or if your condition changes or worsens in any way. Stand Alone Forms: Work/School Release Coding Level of Care Code ED Baggagemaster for Shakir Fwzoë Exam Comprehensive
[2021-02-09 18:26] LABS: HCG, Serum Qual Negative (Negative)
[2021-02-09 18:31] LABS: Alanine Aminotransferase 25 U/L (0-33); Albumin Level 4.1 g/dL (3.5-5.2); Alkaline Phosphatase 92 IU/L (35-105); Anion Gap 14.5 (5-19); Aspartate Amino Transferase 22 U/L (0-32); Blood Urea Nitrogen 7 mg/dL (6-20); Calcium 8.8 mg/dL (8.5-10.5); Carbon Dioxide 25 mmol/L (22-29); Chloride 100 mmol/L (98-107); Globulin 2.9 g/dL (1.3-4.6); Glomerular Filtration Rate 141.2 mL/min (90-130); Glucose 75 mg/dL (65-115); Osmolality Calculated 279 mOsm/kg (285-295); Potassium 3.5 mmol/L (3.5-5.1); Sodium 136 mmol/L (136-145); Total Bilirubin 0.9 mg/dL (0.15-1.2)
[2021-02-09 18:32] LABS: Troponin(5th) Baseline 6 ng/L (0-10)
[2021-02-09 18:36] VITALS: BP 123/91; PULSE 103; RESP 18; O2SAT 97
[2021-02-09 18:37] LABS: Basophils # 0.1 10^3/uL (0.0-0.1); Basophils % 0.5 %; Eosinophils # 0.2 10^3/uL (0.0-0.8); Eosinophils % 1.4 %; Hematocrit 37.1 % (37.0-47.0); Hemoglobin 11.5 g/dL (11.5-15.3); Lymphocytes # 3.3 10^3/uL (0.8-4.8); Lymphocytes % 24.8 %; Mean Corpuscular Hemoglobin 25.5 pg (28.0-34.0); Mean Corpuscular Volume 82.3 fL (81-99); Mean Platelet Volume 10.1 fL (7.4-10.4); Monocytes % 7.7 %; Neutrophils # 8.65 10^3/uL (1.8-7.7); Neutrophils % 65.1 %; Nucleated Red Blood Cells % 0 %; Platelet Count 434 10^3/cmm (130-400); Red Blood Count 4.51 10^6/uL (4.1-5.3); Red Cell Distribution Width 15.6 % (12.1-15.1); White Blood Count 13.3 10^3/uL (4.0-10.0)
[2021-02-09 18:51] LABS: D Dimer 0.44 ug/mIFEU (0-0.59)
--- NOTE | 2021-02-09 19:07 | ECG_ITS ---
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: : 1985 Requested By: Anil Haque Order Number: [id number] Raquel MD: DIMA DUMONT Measurements Intervals Tracy Rate: 102 P: 45 MN: 131 QRS: 1 QRSD: 78 T: 6 QT: 341 QTc: 445 Interpretive Statements SINUS TACHYCARDIA POSSIBLE ANTERIOR MYOCARDIAL INFARCTION [30 ms Q WAVE IN V3/V4, OR R < 0.2 mV IN V4], PROBABLY OLD ABNORMAL RHYTHM ECG Compared to ECG 02/04/2021 01:51:42 Myocardial infarct finding now present Sinus rhythm no longer present Electronically Signed On 02-10-2021 20:14:12 CDT by DIMA DUMONT [id number]
[2021-02-09] MEDS: ipratropium-albuterol 3 mL Neb INHALATION (19:19)
[2021-02-09 19:21] VITALS: PULSE 107; RESP 22; O2SAT 97
[2021-02-09 19:25] VITALS: PULSE 97
[2021-02-09 19:56] VITALS: BP 120/89; PULSE 105; RESP 16
== END 2021-02-09 19:58 | disposition home or self-care (01) ==
PROVIDERS: Emergency Provider Physician Assistant; PCP Family Medicine
DX: R06.02 Shortness of breath (principal); R07.89 Other chest pain
CPT/HCPCS: 36415; 70450; 71045; 80053; 84484; 84703; 85025; 85378; 93005; 94640; 99284

== ENCOUNTER 2021-05-04 13:38 | Emergency (ER) | payer OTHER, SELFPAY ==
[2021-05-04 15:08] VITALS: BP 151/103; PULSE 98; RESP 20; TEMP 36.9; O2SAT 97; BMI 44.4
--- NOTE | 2021-05-04 17:03 | ED_ITS ---
HPI - Female Genitourinary General: Chief complaint: Urogenital-Female Stated complaint: PRESSURE IN LOWER ABD Time Seen by Provider: 05/04/21 17:02 History of Present Illness: HPI Narrative: Patient comes in with some pelvic pressure and urinary discomfort. Patient denies any bleeding or abnormal vaginal discharge. Patient reports no fever or nausea or vomiting. Patient appears well. Patient appears no acute distress. Patient has a history of asthma. Patient is also had to leave work today due to this discomfort. Patient reported a history of diarrhea last week. Date of Last Menstrual Period: 01/19/21 Review of Systems General: Reports: 10 or more systems reviewed and unremarkable except in HPI and below : Reports: urinary frequency and pelvic pain PFSH ED PFSH: Social History Smoking and tobacco status: never smoked Alcohol intake: never Female Reproductive History: Date of last menstrual period: 01/19/21 Physical Exam Const: COMMON NORMALS: no acute distress and patient oriented x3 GENERAL APPEARANCE: cooperative HENMT: COMMON NORMALS: normocephalic and Normal external nose present HEAD & SCALP: normal to inspection and normocephalic NOSE: Normal external nose present MOUTH: Normal oral and palatal mucosa present Eye: GENERAL EYE: appearance normal, both eyes and all related structures Neck/C-Spine: COMMON NORMALS: full ROM Lymph: LYMPHATIC: no lymphadenopathy noted Chest: COMMONS NORMALS: normal inspection of the chest Resp: COMMON NORMALS: normal respiratory effort EFFORT & INSPECTION: Yes able to speak in complete sentences Cardio: COMMON NORMALS: regular rate and regular rhythm RATE: regular rate RHYTHM: regular rhythm GI: COMMON NORMALS: Soft to palpation and non-tender AUSCULTATION: Yes normoactive bowel sounds PALPATION: Yes Soft to palpation : COMMON NORMALS: Yes no CVA tenderness BLADDER/KIDNEY EXAM: Yes no CVA tenderness Back/Pelvis: COMMON NORMALS: no CVA tenderness and thoracic and lumbar spine normal to inspection Extremity: COMMON NORMALS: normal to inspection Neuro: COMMON NORMALS: patient oriented x3 and moves all extremities Psych: COMMON NORMALS: mental status grossly normal and cooperative Skin: COMMON NORMALS: no rashes or lesions noted GENERAL SKIN EXAM: no rashes or lesions noted Course Vital Signs: Vital signs: Vital Signs Temperature 98.4 F 05/04/21 15:08 Pulse Rate 98 05/04/21 15:08 Respiratory Rate 20 H 05/04/21 15:08 Blood Pressure 151/103 05/04/21 15:08 Pulse Oximetry 97 05/04/21 15:08 MDM - Female MDM Narrative: Medical decision making narrative: Patient comes in today with complaints of pelvic pressure and urinary discomfort. Patient reports symptoms for last 2 days. On exam abdomen soft and nontender bowel sounds are present. Patient does have some mild tenderness in the suprapubic area. No CVA tenderness is noted. Vital signs are normal. Differential diagnosis includes but not limited to cystitis, constipation, PID. Patient reports no significant signs of PID or serious infection. Urinalysis was unremarkable except for some blood in it. We will go ahead and cover for mild cystitis with Macrodantin 100 mg twice a day for 5 days. Patient was also had have a COVID-19 test in order to return to work that was processed for patient she was discharged home. Covid test was negative. Lab Data: Labs: Lab Results 05/04/21 05/04/21 17:35 18:22 Urine Color Yellow (Yellow) Urine Appearance Clear (CLEAR) Urine pH 5 (5-7) Ur Specific Gravit y 1.025 (1.005-1.030) Urine Protein Neg (Negative) Urine Glucose (UA) Norm (Normal) Urine Ketones Negative (Negative) Urine Blood 3+ H (Negative) Urine Nitrate Negative (Negative) Urine Bilirubin Neg (Negative) Urine Urobilinogen Norm mg/dL mg/dL (Negative) Ur Leukocyte Zo ase Negative (Negative) Urine RBC 0-4 /hpf H /hpf (0-2) Urine WBC 0-4 /hpf H /hpf (0-5) Ur Squamous Epith Cells 0-4 /hpf H /hpf (0-5) Amorphous Sediment Not Reportable Urine Bacteria 1+ /hpf H /hpf (NONE) SARS-CoV-2 Ag (Rap id) Negative (Negative) Discharge Plan Discharge Patient Disposition: Home Clinical Impression: Cystitis Condition: Stable Prescriptions: New Macrobid 100 mg capsule 100 mg PO BID 5 Days Qty: 10 RF: 0 No Action Naprosyn 500 mg tablet 500 mg PO BID PRN (Reason: pain) Qty: 20 RF: 0 albuterol sulfate 90 mcg/actuation HFA aerosol inhaler 2 inh inhalation Q6H PRN (Reason: shortness of breath or wheezing) Qty: 8.5 RF: 0 methylprednisolone 4 mg tablets,dose pack See Rx Instructions .ROUTE .COMPLEX Qty: 21 RF: 0 Pending RF: 0 EC-Naprosyn 500 mg tablet,delayed release (DR/EC) 500 mg PO BID PRN (Reason: pain) Qty: 20 RF: 0 Discharge Orders: Discharge ED (Routine); Ordered 05/04/21 Ordered By: Saroj Fuentes Referrals: Molina Ojeda MD [Primary Care Provider] - Discharge Diet: Usual diet Discharge Activity: Increase activity as tolerated Patient Instructions: Urinary Tract Infection in Women (ED), Opioid Safety Activity Restrictions/Additional Instructions: Drink plenty water with medication. Take Macrobid twice a day for the next 5 days. Monitor for worsening symptoms such as high fever, nausea vomiting, or increased pain. Return to the ER as needed. Follow-up with primary care in 1 week for urine recheck. Stand Alone Forms: Work/School Release Coding Level of Care Code ED Air Sealing Technician for Shakir Fwd Exam Comprehensive
[2021-05-04 18:00] LABS: Glucose Urine UA Norm (Normal); Ketones Urine Negative (Negative); Protein Urine Neg (Negative); Specific Gravity, Urine 1.025 (1.005-1.030); Urine Appearance Clear (CLEAR); Urine Color Yellow (Yellow); pH Urine 5 (5-7)
[2021-05-04 18:01] LABS: Add Urine Microscopic? YES; Bilirubin Urine Neg (Negative); Blood Urine 3+ (Negative); Leukocyte Esterase Urine Negative (Negative); Nitrate Urine Negative (Negative); Urobilinogen Urine Norm (Negative)
[2021-05-04 18:25] LABS: Bacteria Urine 1+ /hpf; RBC Urine 0-4 /hpf (0-2); Squamous Epithelial Cell Urine 0-4 /hpf (0-5); WBC Urine 0-4 /hpf (0-5)
[2021-05-04 18:26] LABS: Add Urine Culture? No
[2021-05-04] MEDS: nitrofurantoin SR (BID) 100 mg Capsule PO (18:36)
[2021-05-04 18:55] LABS: SARS Covid-2 Antigen Negative (Negative)
== END 2021-05-04 19:02 | disposition home or self-care (01) ==
PROVIDERS: Emergency Provider Nurse Practitioner Family; PCP Family Medicine
DX: N30.90 Cystitis, unspecified without hematuria (principal); Z20.822 Contact with and (suspected) exposure to COVID-19
CPT/HCPCS: 81001; 87426; 99283

== ENCOUNTER 2022-01-20 14:54 | Emergency (ER) | payer BC, SELFPAY ==
[2022-01-20 15:07] VITALS: BP 139/90; PULSE 105; RESP 18; TEMP 36.2; O2SAT 94; BMI 37.9
[2022-01-20 16:28] LABS: Basophils # 0.1 10^3/uL (0.0-0.1); Basophils % 0.6 %; Eosinophils # 0.1 10^3/uL (0.0-0.8); Eosinophils % 1.1 %; Hematocrit 39.4 % (37.0-47.0); Hemoglobin 12.4 g/dL (11.5-15.3); Lymphocytes # 2.7 10^3/uL (0.8-4.8); Lymphocytes % 23.8 %; Mean Corpuscular HGB Conc 31.5 g/dL (30.0-36.0); Mean Corpuscular Volume 79.4 fl (81-99); Monocytes # 0.6 10^3/uL (0.2-0.9); Neutrophils # 7.79 10^3/uL (1.8-7.7); Neutrophils % 69.2 %; Nucleated Red Blood Cells % 0 %; Platelet Count 471 10^3/cmm (130-400); Red Blood Count 4.96 10^6/uL (4.1-5.3); Red Cell Distribution Width 15.4 % (12.1-15.1); White Blood Count 11.3 10^3/uL (4.0-10.0)
[2022-01-20 16:45] LABS: HCG, Serum Qual Negative (Negative)
[2022-01-20 16:53] LABS: Alanine Aminotransferase 31 U/L (0-33); Albumin Level 4.6 g/dL (3.5-5.2); Alkaline Phosphatase 94 IU/L (35-105); Aspartate Amino Transferase 25 U/L (0-32); Blood Urea Nitrogen 8 mg/dL (6-20); Calcium 9.5 mg/dL (8.5-10.5); Carbon Dioxide 26 mmol/L (22-29); Chloride 101 mmol/L (98-107); Globulin 3.2 g/dL (1.3-4.6); Glomerular Filtration Rate 81.6 mL/min (90-130); Glucose 97 mg/dL (65-115); Osmolality Calculated 286 mOsm/kg (285-295); Sodium 139 mmol/L (136-145); Total Bilirubin 0.9 mg/dL (0.15-1.2); Total Protein 7.8 g/dL (6.6-8.7)
--- NOTE | 2022-01-20 18:38 | W.ED.FEMALGU ---
HPI - Female Genitourinary General: Chief complaint: Vaginal Bleeding Stated complaint: groin pain/heavy vaginal bleeding Time Seen by Provider: 01/20/22 18:38 History of Present Illness: Ms. Easton is a 36-year-old lady who presents to the emergency department due to abdominal pain and vaginal bleeding. She reports approximately 1 month ago, without specific known inciting event, onset of left lower quadrant abdominal pain. Since onset symptoms have persisted and are moderate to severe in variability. She describes it as a shooting pulling pain which is sometimes worse with movement but not consistently. No associated changes urinating or with bowel movements ago no nausea vomiting. Additionally on January 11 she began her normal expected. However this lasted 7 days instead of typically 5 and had heavy bleeding is moderate. She reports soaking through multiple pads however is no longer having bleeding. Mild associated fatigue but no lightheadedness, dizziness, chest pain, shortness of breath. Denies similar irregularity or heavy variation in the past. Does have a history of ovarian cyst. No other specific changes in health, exacerbating, or alleviating factors identified. Onset (ago): week(s) Location of symptoms: LLQ Severity: moderate Consistency: constant Vaginal bleeding: heavy Exacerbating factors: none Relieving factors: none Date of Last Menstrual Period: 01/19/21 Review of Systems General: Reports: 10 or more systems reviewed and unremarkable except in HPI and below PFSH ED PFSH: Medical History (Updated 01/28/22 @ 20:35 by Charley Rashid MD) History of LEEP (loop electrosurgical excision procedure) of cervix complicating No pertinent past medical history neghx: htn, dm, thyroid, dvt/pe PCP: Dr. Ojeda Ovarian cyst Surgical History (Updated 01/28/22 @ 20:31 by Charley Rashid MD) History of local excision of skin lesion rectal History of loop electrical excision procedure (LEEP) X2 Family History (Updated 01/27/22 @ 09:29 by Radha Watkins LPN) Father Colon cancer Diabetes Mother Thyroid disease Denies family history of Cervical cancer Ovarian cancer Prostate cancer Clotting disorder Heart disease Hyperlipidemia Breast cancer Bleeding disorder Hypertension Uterine cancer Stroke Female Reproductive History: Date of last menstrual period: 01/19/21 Physical Exam Const: COMMON NORMALS: alert GENERAL APPEARANCE: cooperative and well developed HENMT: COMMON NORMALS: normocephalic and atraumatic HEAD & SCALP: normocephalic and atraumatic Eye: COMMON NORMALS: conjunctivae normal CONJUNCTIVA: Yes conjunctivae normal SCLERA: sclerae normal Neck/C-Spine: COMMON NORMALS: supple GENERAL: Yes trachea midline Resp: COMMON NORMALS: normal respiratory effort and clear to auscultation bilaterally EFFORT & INSPECTION: Yes able to speak in complete sentences AUSCULTATION: clear to auscultation bilaterally Cardio: COMMON NORMALS: regular rate and regular rhythm RATE: regular rate RHYTHM: regular rhythm GI: COMMON NORMALS: Soft to palpation PALPATION: Yes Soft to palpation and No Tenderness to palpation present (GI) : OTHER: Exam performed with blow moulding machine operator present. Normal external genitalia. Vagina appears normal without blood in the vaginal vault. Cervix without bleeding or dilation. No obvious trauma. Extremity: GENERAL: Yes normal exam except as noted and No edema Neuro: COMMON NORMALS: moves all extremities SENSORIUM/ORIENTATION: Yes alert and No Orientation impaired Psych: COMMON NORMALS: mental status grossly normal and Normal thought process present THOUGHT PROCESS: Normal thought process present Course ED course: - Patient was seen and evaluated by me at bedside - Patient placed on cardiac monitors, IV access obtained - Initial evaluation notable for exam as above - Labs and xrays personally interpreted by me -Analgesia and fluids given - Labs notable for no leukocytosis, normal hemoglobin. Microcytosis is noted. Metabolic panel without acute abnormality. Urinalysis with signs epithelial contamination - Imaging notable for large right ovarian cystic lesion which is larger compared to prior. Discussed with DATA ENTRY PROCESSOR Dr. Rashid, patient can see follow-up with outpatient setting. - Upon serial reexamination after treatment the patient was improved. Given abdominal exam I do not feel that additional imaging such as CT is required at this time. - Based on patient history, evaluation, and testing as interpreted the most likely cause of the patient's condition is pelvic pain of uncertain cause right ovarian cyst noted. - The results of ED evaluation were discussed with the patient including prescriptions and/or symptomatic cares (if applicable) including appropriate and responsible use, followup plan, and return precautions. The patient verbalized understanding and felt safe for discharge. - Patient discharged in satisfactory condition. Note: Click bubbles or prepopulated cabrera in note writing are used for assistance with data collection and billing and are inherently more limited than narrative and other text portions of this note. Please use narrative for additional clinical history and defer to narrative/free test for any case of contradictory information. If information appears in only free text or click bubble it should be considered present or absent as reported. Please contact note telegraphic typewriter mechanic for clarifications of clinical information or contradictory information. MDM is a brief summary, contradictory or erroneous seeming information should be clarified and full note should be reviewed. Vital Signs: Vital signs: Vital Signs Temperature 98.0 F 01/20/22 23:42 Pulse Rate 85 01/20/22 23:42 Respiratory Rate 18 01/20/22 23:42 Blood Pressure 134/78 01/20/22 23:42 Pulse Oximetry 96 01/20/22 23:42 MDM - Female Medical Decision Making 36-year-old lady presenting with abnormal uterine bleeding and left lower quadrant abdominal pain. Patient found to have large ovarian cyst on the right which requires further outpatient follow-up. Satisfactory for outpatient management. Medical Records I reviewed the patient's medical records. Lab Data I reviewed the patient's lab results. : 01/20/22 16:14 01/20/22 16:14 Radiology Impressions Pelvic/Transvag US 01/20/22 19:25 IMPRESSION: 1. Larger 15.1 cm cystic lesion in the pelvis is most likely arising from the right ovary. This cyst is likely an enlarging benign neoplasm. Surgical consultation is recommended. Laboratory Results WBC 11.3 10^3/uL (4.0-10.0) H 01/20/22 16:14 RBC 4.96 10^6/uL (4.1-5.3) 01/20/22 16:14 Hgb 12.4 g/dL (11.5-15.3) 01/20/22 16:14 Hct 39.4 % (37.0-47.0) 01/20/22 16:14 MCV 79.4 fl (81-99) L 01/20/22 16:14 MCH 25.0 pg (28.0-34.0) L 01/20/22 16:14 MCHC 31.5 g/dL (30.0-36.0) 01/20/22 16:14 RDW 15.4 % (12.1-15.1) H 01/20/22 16:14 Plt Count 471 10^3/cmm (130-400) H 01/20/22 16:14 MPV 10.0 fL (7.4-10.4) 01/20/22 16:14 Neut % (Auto) 69.2 % 01/20/22 16:14 Lymph % (Auto) 23.8 % 01/20/22 16:14 Valley % (Auto) 5.0 % 01/20/22 16:14 Eos % (Auto) 1.1 % 01/20/22 16:14 Baso % (Auto) 0.6 % 01/20/22 16:14 Neut # (Auto) 7.79 10^3/uL (1.8-7.7) H 01/20/22 16:14 Lymph # (Auto) 2.7 10^3/uL (0.8-4.8) 01/20/22 16:14 Valley # (Auto) 0.6 10^3/uL (0.2-0.9) 01/20/22 16:14 Eos # (Auto) 0.1 10^3/uL (0.0-0.8) 01/20/22 16:14 Baso # (Auto) 0.1 10^3/uL (0.0-0.1) 01/20/22 16:14 Nucleated RBC % (auto) 0 % 01/20/22 16:14 Nucleated RBCs # 0.0 /100WBC 01/20/22 16:14 Sodium 139 mmol/L (136-145) 01/20/22 16:14 Potassium 4.0 mmol/L (3.5-5.1) 01/20/22 16:14 Chloride 101 mmol/L (98-107) 01/20/22 16:14 Carbon Dioxide 26 mmol/L (22-29) 01/20/22 16:14 Anion Gap 16.0 (5-19) 01/20/22 16:14 BUN 8 mg/dL (6-20) 01/20/22 16:14 Creatinine 0.8 mg/dL (0.5-0.9) 01/20/22 16:14 GFR Calculation 81.6 mL/min (90-130) L 01/20/22 16:14 Glucose 97 mg/dL (65-115) 01/20/22 16:14 Calculated Osmolality 286 mOsm/kg (285-295) 01/20/22 16:14 Calcium 9.5 mg/dL (8.5-10.5) 01/20/22 16:14 Total Bilirubin 0.9 mg/dL (0.15-1.2) 01/20/22 16:14 AST 25 U/L (0-32) 01/20/22 16:14 ALT 31 U/L (0-33) 01/20/22 16:14 Alkaline Phosphatase 94 IU/L (35-105) 01/20/22 16:14 Total Protein 7.8 g/dL (6.6-8.7) 01/20/22 16:14 Albumin 4.6 g/dL (3.5-5.2) 01/20/22 16:14 Globulin 3.2 g/dL (1.3-4.6) 01/20/22 16:14 HCG, Qual Negative (Negative) 01/20/22 16:14 Urine Color Yellow (Yellow) 01/20/22 22:28 Urine Appearance Clear (CLEAR) 01/20/22 22:28 Urine pH 6 (5-7) 01/20/22 22:28 Ur Specific [place] 1.020 (1.005-1.030) 01/20/22 22:28 Urine Protein Neg (Negative) 01/20/22 22:28 Urine Glucose (UA) Norm (Normal) 01/20/22 22: Urine Ketones Negative (Negative) 01/20/22 22:28 Urine Blood Trace (Negative) H 01/20/22 22:28 Urine Nitrate Negative (Negative) 01/20/22 22:28 Urine Bilirubin Neg (Negative) 01/20/22 22:28 Urine Urobilinogen Norm mg/dL (Negative) 01/20/22 22:28 Ur Leukocyte Esterase Negative (Negative) 01/20/22 22:28 Urine RBC 0-4 /hpf (0-2) H 01/20/22 22:28 Urine WBC 0-4 /hpf (0-5) H 01/20/22 22:28 Ur Squamous Epith Cells 5-10 /hpf (0-5) H 01/20/22 22:28 Amorphous Sediment Not Reportable 01/20/22 22:28 Urine Bacteria Trace /hpf (NONE) 01/20/22 22:28 Urine Mucus 2+ /hpf 01/20/22 22:28 Discharge Plan Discharge Patient Disposition: Home Clinical Impression: Abdominal pain, Heavy menstrual bleeding, Ovarian cyst Condition: Stable Prescriptions: New oxycodone 5 mg tablet 5 mg PO Q4H PRN (Reason: pain) Qty: 6 0RF ondansetron 4 mg tablet,disintegrating 4 mg PO TID PRN (Reason: nausea and vomiting) Qty: 15 0RF No Action venlafaxine [Effexor XR] 75 mg capsule,extended release 24hr 75 mg PO DAILY 0RF omeprazole 20 mg tablet,delayed release (DR/EC) 20 mg PO DAILY 0RF albuterol sulfate 90 mcg/actuation HFA aerosol inhaler 2 inh inhalation Q6H PRN (Reason: shortness of breath or wheezing) Qty: 8.5 0RF Discharge Orders: Discharge ED (Routine); Ordered 01/20/22 Ordered By: Nicholas Sun Referrals: Molina Ojeda MD [Primary Care Provider] - Discharge Diet: Usual diet Discharge Activity: Increase activity as tolerated Patient Instructions: Abnormal (Dysfunctional) Uterine Bleeding (ED), Ovarian Cyst (ED), Pelvic Pain in Women (ED), Abdominal Pain (ED), Opioid Safety Activity Restrictions/Additional Instructions: Thank you for visiting the emergency department. You were seen and evaluated for pelvic pain. The exact cause of your symptoms is unclear. As discussed you do have a large right ovarian cyst which requires follow-up with DATA ENTRY PROCESSOR. Please call Dr. Rashid's clinic at [phone] and to let them know that you were seen in the emergency department and I discussed your case with Dr. Rashid. She should be able to see you on Tuesday. Please follow-up with your primary care provider. Please return to the emergency department for worsening symptoms or anything else that you are concerned about a feel needs emergency department evaluation. Stand Alone Forms: Work/School Release Coding Level of Care Code ED Labor Relations Specialist for Chg Fwd Exam Comprehensive
[2022-01-20] MEDS: sodium chloride 0.9% 1,000 ML 999 ML IV (19:07)
--- NOTE | 2022-01-20 19:25 | USR_ITS ---
PROCEDURE INFORMATION: Exam: US Pelvis, Transvaginal Exam date and time: 01/20/2022 8:05 PM Age: 36 years old Clinical indication: Abdominal pain; Left lower quadrant; Additional info: Llq abdominal pain, abnormal bleeding, eval torsion/other TECHNIQUE: Imaging protocol: Real-time transvaginal pelvic ultrasound with image documentation. Transvaginal imaging was used for better evaluation of the endometrium, adnexa, and/or cervix. COMPARISON: US pelvic with transvaginal 02/08/2018 9:19 AM FINDINGS: Uterus: The uterus measures 8.3 x 5.4 x 4.5 cm. Nabothian cysts in the cervix. The cervix was suboptimally visualized. There are no images labeled cervix. Endometrial thickness 3.6 mm. Right ovary/adnexa: The right ovary measures 4.6 x 3.0 x 3.2 cm with multiple follicles and normal blood flow. In the midline pelvis and extending to the right ovary is a 15.1 x 7.1 x 8.0 cm anechoic cystic lesion. No visible septations or solid component. This has increased significantly in size since the prior study. Left ovary/adnexa: The left ovary measures 2.7 x 3.3 x 2.5 cm with multiple small follicles and normal blood flow. Intraperitoneal space: No free peritoneal fluid. US/US pelvic with transvaginal IMPRESSION: 1. Larger 15.1 cm cystic lesion in the pelvis is most likely arising from the right ovary. This cyst is likely an enlarging benign neoplasm. Surgical consultation is recommended.
[2022-01-20] MEDS: ketorolac 30 mg/mL INJ 15 MG IVP (19:35)
[2022-01-20 21:44] VITALS: BP 127/84; PULSE 87; RESP 18; TEMP 36.7; O2SAT 96
[2022-01-20 22:50] LABS: Add Urine Culture? No; Add Urine Microscopic? YES; Bacteria Urine TRACE /hpf; Bilirubin Urine Neg (Negative); Blood Urine Trace (Negative); Glucose Urine UA Norm (Normal); Ketones Urine Negative (Negative); Leukocyte Esterase Urine Negative (Negative); Mucus Urine 2+ /hpf; Nitrate Urine Negative (Negative); Protein Urine Neg (Negative); RBC Urine 0-4 /hpf (0-2); Urine Appearance Clear (CLEAR); Urine Color Yellow (Yellow); Urobilinogen Urine Norm (Negative); WBC Urine 0-4 /hpf (0-5); pH Urine 6 (5-7)
[2022-01-20 23:42] VITALS: BP 134/78; PULSE 85; RESP 18; TEMP 36.7; O2SAT 96
== END 2022-01-20 23:43 | disposition home or self-care (01) ==
PROVIDERS: Physician Assistant; Emergency Provider Emergency Medicine; PCP Family Medicine
DX: R10.32 Left lower quadrant pain (principal); N92.0 Excessive and frequent menstruation with regular cycle; N83.201 Unspecified ovarian cyst, right side
CPT/HCPCS: 76830; 76856; 80053; 81001; 84703; 85025; 87210; 96361; 96374; 99284; J1885; J7030

== ENCOUNTER → 2022-01-27 10:57 | Outpatient (BNVA) | payer BC, SELFPAY | PROVIDERS: PCP Family Medicine; Visit Provider Obstetrics & Gynecology | DX: N92.0 Excessive and frequent menstruation with regular cycle (principal); N83.8 Other noninflammatory disorders of ovary, fallopian tube and broad ligament | CPT/HCPCS: 81500; 83036; 83525; 84443; 88305 ==

== ENCOUNTER 2022-02-16 14:45 | Inpatient (IN) | payer BC, SELFPAY ==
[2022-02-15 12:39] VITALS: BMI 40.3
[2022-02-16] VITALS (22 sets, daily range): BP systolic 106–148; BP diastolic 66–100; PULSE 76–100; RESP 16–18; TEMP 36.3–36.9; O2SAT 95–100; BMI 47.1
[2022-02-16 08:45] LABS: OR HCG Qualitative Urine Negative (Negative)
[2022-02-16] MEDS: phenazopyridine 100 mg Tablet 200 MG PO (08:54)
[2022-02-16] MEDS: CELEcoxib 200 mg Capsule 400 MG PO (08:55)
[2022-02-16] MEDS: gabapentin 300 mg Capsule PO (08:55)
[2022-02-16] MEDS: ketorolac 30 mg/mL INJ IVP ×4 (08:55→21:58)
[2022-02-16] MEDS: sodium chloride 0.9% 1,000 ML 30 ML IV (09:13)
[2022-02-16] MEDS: acetaminophen 1,000 MG/100 ML PIGGYBACK 400 MG IV (09:13)
--- NOTE | 2022-02-16 09:27 | ANES.PREANE2 ---
Pre-Anesthetic Assessment Height/Weight: Height 1.68 m Weight 113.398 kg Temp Pulse Resp BP Pulse Ox 97.4 F L 100 16 148/100 96 02/16/22 08:27 02/16/22 08:27 02/16/22 08:27 02/16/22 08:27 02/16/22 08:27 Preop Diagnosis: ovarian mass, AUB, andometrial polyps Operation Date: 02/16/22 09:20 Proposed Procedures p Laparotomy with ovarian cyst removal 32457, 20314, Hysteroscopy, dilation and curettage with Myosure 59536, [id number],35136],N83.8,N93.9,N84.0(Not Applicable) - Charley Rashid MD s Hysteroscopy w/ Myosure(Not Applicable) - Charley Rashid MD s Dilation And Curettage (D&C)(Not Applicable) - Charley Rashid MD Familial anesthetic complications: none Was Beta Karlos taken within 24 hours: N/A Was Clonidine taken within 24 hours: N/A Last intake: Intake Last Liquid Date 02/15/22 Last Liquid Time 23:49 Last Solid Date 02/15/22 Last Solid Time 20:00 Social No alcohol and No tobacco Exam alert, oriented x 3, clear to auscultation bilaterally and regular rate & rhythm Airway Submandibular: within normal limits Cervical ROM: within normal limits Mallampati: Class II Dentition: full Pulmonary Asthma GI Gastroesophageal Reflux Disease Metabolic Morbid Obesity Neuropsych Anxiety and Depression Anesthetic Plan ASA status: 3 Anesthesia: General Medications/Allergies Home Medications Medication Instructions Recorded Confirmed Last Taken Type albuterol sulfate 90 mcg/actuation 2 inh INHALATION Q6H PRN #8.5 g 02/09/21 02/16/22 2 Weeks Ago Rx aerosol inhaler ~02/02/22 ondansetron 4 mg disintegrating 4 mg PO TID PRN #15 tab 01/20/22 02/16/22 Unknown Rx tablet omeprazole 20 mg tablet,delayed 20 mg PO DAILY 01/27/22 02/16/22 02/15/22 History release venlafaxine 75 mg capsule,extended 75 mg PO DAILY 01/27/22 02/16/22 02/15/22 History release 24 hr (Effexor XR) Allergies Allergy/AdvReac Type Severity Reaction Status Date / Time No Known Allergies Allergy Verified 02/16/22 08:40 Current Medications Generic Name Dose Route Start Last Admin Trade Name Abdiq PRN Reason Stop Dose Admin Sodium Chloride 1,000 mls @ 30 mls/hr 02/16/22 08:15 02/16/22 09:13 Sodium Chloride 0.9% IV 02/17/22 08:14 30 mls/hr .Q24H JOHN Administration PFSH Anesthesia Medical History History of LEEP (loop electrosurgical excision procedure) of cervix complicating No pertinent past medical history neghx: htn, dm, thyroid, dvt/pe PCP: Dr. Ojeda Ovarian cyst Surgical History History of local excision of skin lesion rectal History of loop electrical excision procedure (LEEP) X2 Family History Father Colon cancer Diabetes Mother Thyroid disease Denies family history of Cervical cancer Ovarian cancer Prostate cancer Clotting disorder Heart disease Hyperlipidemia Breast cancer Bleeding disorder Hypertension Uterine cancer Stroke Female Reproductive History Date of last menstrual period: 01/19/21 Data Anesthesia : 02/16/22 09:10 02/16/22 09:10 Cardiac Studies: No Data to Display
[2022-02-16 09:30] LABS: Basophils # 0.1 10^3/uL (0.0-0.1); Basophils % 0.6 %; Eosinophils # 0.1 10^3/uL (0.0-0.8); Eosinophils % 1.2 %; Hematocrit 36.8 % (37.0-47.0); Hemoglobin 11.5 g/dL (11.5-15.3); Lymphocytes # 3.2 10^3/uL (0.8-4.8); Lymphocytes % 31.6 %; Mean Corpuscular HGB Conc 31.3 g/dL (30.0-36.0); Mean Corpuscular Hemoglobin 25.3 pg (28.0-34.0); Mean Corpuscular Volume 80.9 fl (81-99); Mean Platelet Volume 10.4 fL (7.4-10.4); Monocytes # 0.6 10^3/uL (0.2-0.9); Monocytes % 6.1 %; Neutrophils # 6.06 10^3/uL (1.8-7.7); Neutrophils % 60.1 %; Nucleated Red Blood Cells % 0 %; Platelet Count 382 10^3/cmm (130-400); Red Blood Count 4.55 10^6/uL (4.1-5.3); Red Cell Distribution Width 15.4 % (12.1-15.1); White Blood Count 10.1 10^3/uL (4.0-10.0)
[2022-02-16 09:44] LABS: Blood Urea Nitrogen 12 mg/dL (6-20); Calcium 9.2 mg/dL (8.5-10.5); Carbon Dioxide 24 mmol/L (22-29); Chloride 106 mmol/L (98-107); Glomerular Filtration Rate 113.8 mL/min (90-130); Glucose 96 mg/dL (65-115); Osmolality Calculated 294 mOsm/kg (285-295); Sodium 142 mmol/L (136-145)
--- NOTE | 2022-02-16 10:32 | W.PM.OPSUD ---
Surgery/Procedure H&P Update DATE OF PROCEDURE: February 16, 2022 DATE H&P PERFORMED: 02/11/22 H&P UPDATE INFORMATION: I have reviewed H&P completed within last 30 days, I have examined patient prior to procedure and No changes to prior documentation PREOP DIAGNOSIS: ovarian mass, AUB, andometrial polyps PLANNED PROCEDURE: Operation Date: 02/16/22 09:20 Proposed Procedures p Laparotomy with ovarian cyst removal 98169, 05646, Hysteroscopy, dilation and curettage with Myosure [id number], [id number]],N83.8,N93.9,N84.0(Not Applicable) - Charley Rashid MD s Hysteroscopy w/ Myosure(Not Applicable) - Charley Rashid MD s Dilation And Curettage (D&C)(Not Applicable) - Charley Rashid MD Related Problem List Diagnoses (1) Endometrial polyp: (2) Menorrhagia: (3) Ovarian mass:
[2022-02-16] MEDS: ceFAZolin 3,000 MG in sodium chloride 0.9% (100 ml) 100 ML 200 MG IV ×2 (11:10→18:51)
--- NOTE | 2022-02-16 13:40 | P.OP_ITS ---
Operative Report Date of procedure: February 16, 2022 Pre-op diagnosis: Preop Diagnosis ovarian mass, AUB, andometrial polyps Post-op diagnosis: same Post-op findings: probable right ovarian torsion, normal appearing left ovary. Normal uterus. moderate pelvic adhesions. Endometrial polyp with thickened endometrium. Procedure done: laparotomy with RSO, lysis of adhesions. 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 She was prepped and draped in the normal sterile fashion in the dorsal supine position. A russo catheter was placed. A vertical skin incision was made and carried down to the underlying layer of fascia. The fascia was nicked in the midline and extended superiorly and inferiorly with the Rueda scissors. The fascia was then tented up and the rectus muscles in the midline and the abdomen entered bluntly with the digit. This peritoneal incision was extended superiorly and inferiorly with good visualization of the bladder. There were adhesions of the omentum to the deep pelvis. The ovary had many adhesions to it. As I was lifting it out of the pelvis. An adhesion tore a hole in the back of the cyst. Clear fluid was draining. It had the appearance of benign, clear cystic fluid. It was suctioned out of the pelvis. The Ayaan O retractor was placed and the bowel packed away. The ovarian pedicle was thick and solid. I placed a Lavon clamp inferior to the thickened area. I removed the ovary and tube with the metzenbaum scissors. The pedicle was sutured in a figure of 8 stitch. There was excellent hemostasis. The uterus was found to be normal. The left tube and ovary were found to be normal as well. The ayaan O retractor as well as the packing was removed. The peritoneum was closed with 3-0 Monocryl in a running fashion. The fascia was closed with 0 Vicryl in a running fashion with a single suture. The subcuticular fat was closed with plan gut. The skin was closed with tomi. The wound was dressed. Attention was then turned to the hysteroscopy portion. A weighted speculum was placed into the vagina and the anterior lip of the cervix grasped with a single-tooth tenaculum. The uterus was sounded to 8 cm. The cervix was dilated to 17 Latvian. The hysteroscope was advanced into the endometrial cavity. There was an endometrial polyp present by the right tubal ostia as well as excessive tissue visualized. The MyoSure device was activated and the tissue was removed. Pictures were taken pre and post procedure. All instruments were removed. The patient tolerated the procedure well. Sponge lap and needle counts were correct x3. She was taken to the recovery room in stable condition.
[2022-02-16] MEDS: fentaNYL 50 mcg/mL INJ 2mL IVP ×2 (13:43→14:00)
[2022-02-16] MEDS: pantoprazole DR 40 mg Tablet PO (15:31)
--- NOTE | 2022-02-16 15:39 | ANE.PACU2 ---
Inpatient post-anesthesia follow up: Airway intact: Yes Vital signs: Temperature 97.4 F Pulse Rate 82 Respiratory Rate 18 Blood Pressure 109/78 Pulse Oximetry 100 Oxygen Delivery Me thod Room Air Oxygen Flow Rate 4 Fraction of Inspir ed Oxygen Hydration adequate: Yes Nausea and vomiting: No Pain level: 3 Mental status: Baseline
[2022-02-16] MEDS: lactated ringers 1,000 ML 125 ML IV (17:41)
[2022-02-16] MEDS: HYDROcodone-acetaminophen 5-325 mg Tablet PO (17:47)
[2022-02-16] MEDS: docusate sodium 100 mg Capsule PO (18:52)
[2022-02-16] MEDS: HYDROmorphone 1 mg/mL INJ 1 mL 1.5 MG IVP (20:52)
[2022-02-16] MEDS: calcium carbonate 500 mg Chew Tablet 1000 MG PO (21:04)
[2022-02-17] MEDS: lactated ringers 1,000 ML 125 ML IV (02:28)
[2022-02-17] MEDS: ceFAZolin 3,000 MG in sodium chloride 0.9% (100 ml) 100 ML 200 MG IV (02:49)
[2022-02-17] MEDS: calcium carbonate 500 mg Chew Tablet 1000 MG PO (02:51)
[2022-02-17] MEDS: ketorolac 30 mg/mL INJ IVP ×2 (03:20→08:46)
[2022-02-17 03:24] VITALS: BP 134/83; PULSE 87; RESP 17; TEMP 36.8
[2022-02-17 04:51] LABS: Mean Corpuscular HGB Conc 30.3 g/dL (30.0-36.0); Mean Corpuscular Hemoglobin 25.4 pg (28.0-34.0); Mean Corpuscular Volume 83.8 fl (81-99); Platelet Count 310 10^3/cmm (130-400); Red Blood Count 3.94 10^6/uL (4.1-5.3); Red Cell Distribution Width 15.5 % (12.1-15.1); White Blood Count 12.8 10^3/uL (4.0-10.0)
[2022-02-17 08:45] VITALS: BP 115/74; PULSE 94; RESP 16; TEMP 37.2; O2SAT 97
[2022-02-17] MEDS: docusate sodium 100 mg Capsule PO (08:45)
[2022-02-17] MEDS: HYDROcodone-acetaminophen 5-325 mg Tablet PO ×2 (08:45→15:09)
[2022-02-17] MEDS: venlafaxine ER (24HR) 75 mg Capsule PO (08:45)
[2022-02-17] MEDS: pantoprazole DR 40 mg Tablet PO (08:45)
--- NOTE | 2022-02-17 09:18 | P.PN_ITS ---
Vitals/I&O/Wt Last Vital Signs Temp 98.3 F 02/17/22 03:24 Pulse 87 02/17/22 03:24 Resp 17 02/17/22 03:24 BP 134/83 02/17/22 03:24 Pulse Ox 98 02/16/22 18:35 02/16/22 02/17/22 02/17/22 22:59 06:59 14:59 Intake Total 100 / 1300 1100 / 2400 Output Total 1300 / 2100 500 / 2600 Balance -1200 / -800 600 / -200 Weight last 48 hrs Weight 292 lb Weight 250 lb Physical Exam Narrative: The patient is doing well this morning. She is having some gas pains, but otherwise, no concerns. she has not passed gas and is still on a clear diet. Const: COMMON NORMALS: no acute distress, patient oriented x3, no limitations, healthy appearing, alert and well nourished GENERAL APPEARANCE: cooperative, comfortable, well kempt and well developed ORIENTATION/CONSCIOUSNESS: Yes awake, Yes oriented to person, Yes oriented to place and Yes oriented to time Resp: COMMON NORMALS: normal respiratory effort EFFORT & INSPECTION: Yes able to speak in complete sentences GI: COMMON NORMALS: Soft to palpation PALPATION: Yes Soft to palpation Extremity: COMMON NORMALS: no calf tenderness Neuro: COMMON NORMALS: patient oriented x3 SENSORIUM/ORIENTATION: Yes alert, Yes oriented to person, Yes oriented to place and Yes oriented to time Psych: APPEARANCE: Yes well kempt Urinary Catheter Management: Freedman: Cath Placed During This Visit: yes Reason for Continuing Indwelling Catheter: Perioperative Use in Selected Surgeries Urinary Catheter Date of Insertion: 02/16/22 Urinary Catheter Time of Insertion: 11:31 Data : 02/17/22 04:46 02/16/22 09:10 Attestations Medical Necessity Statement*: The patient had an open surgery. She will be here for 2 nights. Coding Level of Care Code Acute On Car Supervisor for Shakir Medel
[2022-02-17] MEDS: ibuprofen 800 mg tablet PO ×2 (15:09→21:12)
[2022-02-17 22:20] VITALS: BP 99/64; PULSE 100; RESP 14; O2SAT 96
[2022-02-18 04:17] VITALS: BP 125/79; PULSE 92; RESP 14; O2SAT 94
--- NOTE | 2022-02-18 07:40 | PC.NURSE ---
Patient missed hat in toilet
--- NOTE | 2022-02-18 07:47 | P.DS_ITS ---
Discharge Providers Date of Admission: 02/16/22 14:45 Date of Discharge: February 18, 2022 Attending Provider at Admission: Charley Rashid MD Attending Provider at Discharge: Charley Rashid MD Primary Care Provider: Molina Ojeda MD Diagnoses at Discharge Discharge Diagnosis (1) Endometrial polyp: Status: Acute (2) Menorrhagia: Status: Acute (3) Ovarian mass: Status: Acute Hospital Course Hospital Course The patient was admitted for surgery. She did well postoperatively and was ready for discharge on day #2 Physical Exam Narrative: The patient is doing well this morning. She is ambulating. she has passed gas and is on a regular diet. Her pain is well controlled. Const: COMMON NORMALS: no acute distress, patient oriented x3, no limitations, healthy appearing, alert and well nourished Resp: COMMON NORMALS: normal respiratory effort EFFORT & INSPECTION: Yes able to speak in complete sentences GI: COMMON NORMALS: Soft to palpation and non-tender PALPATION: Yes Soft to palpation Extremity: COMMON NORMALS: no calf tenderness Neuro: COMMON NORMALS: patient oriented x3 SENSORIUM/ORIENTATION: Yes alert Skin: WOUNDS: Yes surgical site (clean/dry/intact) Urinary Catheter Management: Freed[place]: Cath Placed During This Visit: yes, but has since been removed by the nurse Reason for Continuing Indwelling Catheter: Decision to DC Catheter Urinary Catheter Date of Insertion: 02/16/22 Urinary Catheter Time of Insertion: 11:31 Date Urinary Catheter Removed: 02/17/22 Time Urinary Catheter Discontinued: 13:15 Discharge Data Studies Completed and Pending Pending at discharge Category Date Time Status ES surgery / GI images Routine Exams 02/16/22 10:22 Taken Urine Culture Routine Lab 02/16/22 11:34 Results Pathology: Surgical [PTH] Routine Pth 02/16/22 13:16 Received Laboratory Results WBC 12.8 10^3/uL (4.0-10.0) H 02/17/22 04:46 RBC 3.94 10^6/uL (4.1-5.3) L 02/17/22 04:46 Hgb 10.0 g/dL (11.5-15.3) L 02/17/22 04:46 Hct 33.0 % (37.0-47.0) L 02/17/22 04:46 MCV 83.8 fl (81-99) 02/17/22 04:46 MCH 25.4 pg (28.0-34.0) L 02/17/22 04:46 MCHC 30.3 g/dL (30.0-36.0) 02/17/22 04:46 RDW 15.5 % (12.1-15.1) H 02/17/22 04:46 Plt Count 310 10^3/cmm (130-400) 02/17/22 04:46 MPV 10.0 fL (7.4-10.4) 02/17/22 04:46 Neut % (Auto) 60.1 % 02/16/22 09:10 Lymph % (Auto) 31.6 % 02/16/22 09:10 [place] % (Auto) 6.1 % 02/16/22 09:10 Eos % (Auto) 1.2 % 02/16/22 09:10 Baso % (Auto) 0.6 % 02/16/22 09:10 Neut # (Auto) 6.06 10^3/uL (1.8-7.7) 02/16/22 09:10 Lymph # (Auto) 3.2 10^3/uL (0.8-4.8) 02/16/22 09:10 [place] # (Auto) 0.6 10^3/uL (0.2-0.9) 02/16/22 09:10 Eos # (Auto) 0.1 10^3/uL (0.0-0.8) 02/16/22 09:10 Baso # (Auto) 0.1 10^3/uL (0.0-0.1) 02/16/22 09:10 Nucleated RBC % (auto) 0 % 02/16/22 09:10 Nucleated RBCs # 0.0 /100WBC 02/16/22 09:10 Sodium 142 mmol/L (136-145) 02/16/22 09:10 Potassium 4.0 mmol/L (3.5-5.1) 02/16/22 09:10 Chloride 106 mmol/L (98-107) 02/16/22 09:10 Carbon Dioxide 24 mmol/L (22-29) 02/16/22 09:10 Anion Gap 16.0 (5-19) 02/16/22 09:10 BUN 12 mg/dL (6-20) 02/16/22 09:10 Creatinine 0.6 mg/dL (0.5-0.9) 02/16/22 09:10 GFR Calculation 113.8 mL/min (90-130) 02/16/22 09:10 Glucose 96 mg/dL (65-115) 02/16/22 09:10 Calculated Osmolality 294 mOsm/kg (285-295) 02/16/22 09:10 Calcium 9.2 mg/dL (8.5-10.5) 02/16/22 09:10 Urine HCG, Qual Negative (Negative) 02/16/22 08:19 Vitals Last Vital Signs Temp 99.0 F 02/17/22 08:45 Pulse 92 02/18/22 04:17 Resp 14 02/18/22 04:17 BP 125/79 02/18/22 04:17 Pulse Ox 94 02/18/22 04:17 Discharge Plan Discharge Patient Disposition: Home Condition: Stable Prescriptions: New docusate sodium 100 mg Capsule 100 mg PO BID Qty: 60 0RF ibuprofen 800 mg Tablet 800 mg PO Q8H Qty: 30 0RF hydrocodone-acetaminophen 5-325 mg Tablet 1 - 2 tab PO Q4H PRN (Reason: Moderate To Severe Pain) Qty: 30 0RF Continued venlafaxine [Effexor XR] 75 mg capsule,extended release 24hr 75 mg PO DAILY 0RF omeprazole 20 mg tablet,delayed release (DR/EC) 20 mg PO DAILY 0RF albuterol sulfate 90 mcg/actuation HFA aerosol inhaler 2 inh inhalation Q6H PRN (Reason: shortness of breath or wheezing) Qty: 8.5 0RF ondansetron 4 mg tablet,disintegrating 4 mg PO TID PRN (Reason: nausea and vomiting) Qty: 15 0RF Rx Instructions: pt states she has not needed to take this medication Discharge Orders: Discharge Order (Routine); Ordered 02/18/22 Ordered By: Charley Rashid Patient Instructions: Opioid Safety Discharge Attestations Time Spent in Discharge Care*: less than 30 min Quality Metrics Clinical Quality Measures [ No reported AMI, CVA or VTE this stay] Coding Level of Care Code Acute Chg FW DC note Diagnoses Endometrial polyp N84.0 Menorrhagia N92.0 Ovarian mass N83.8
[2022-02-18] MEDS: HYDROcodone-acetaminophen 5-325 mg Tablet PO (09:16)
[2022-02-18] MEDS: docusate sodium 100 mg Capsule PO (09:16)
[2022-02-18] MEDS: venlafaxine ER (24HR) 75 mg Capsule PO (09:16)
[2022-02-18 09:26] VITALS: BP 106/70; PULSE 98; RESP 16; TEMP 36.6; O2SAT 97
== END 2022-02-18 09:23 | disposition home or self-care (01) | DRG 743 ==
LOC: OBGYN 15:04
PROVIDERS: Anesthesiology; Admitting Provider Obstetrics & Gynecology; PCP Family Medicine; Visit Provider Obstetrics & Gynecology
PROC: 0UT00ZZ Resection of Right Ovary, Open Approach (ICD-10-PCS; principal; 2022-02-16 09:20)
PROC: 0UDB8ZZ Extraction of Endometrium, Via Natural or Artificial Opening Endoscopic (ICD-10-PCS; CPT 58558; 2022-02-16 09:20)
PROC: 0UT00ZZ Resection of Right Ovary, Open Approach (ICD-10-PCS; CPT 58120; 2022-02-16 09:20)
DX: N83.8 Other noninflammatory disorders of ovary, fallopian tube and broad ligament (principal); N84.0 Polyp of corpus uteri; Z79.51 Long term (current) use of inhaled steroids; Z79.899 Other long term (current) drug therapy; N92.0 Excessive and frequent menstruation with regular cycle; N83.511 Torsion of right ovary and ovarian pedicle
CPT/HCPCS: 36415; 80048; 81025; 84703; 85025; 85027; 87086; 88108; 88305; J0690; J1170; J1885; J2250; J2405; J2704; J3010; J3490; J7030

== ENCOUNTER 2022-03-28 05:20 | Emergency (ER) | payer BC, SELFPAY ==
[2022-03-28 05:23] VITALS: BP 143/84; PULSE 125; RESP 24; TEMP 37.3; O2SAT 95; BMI 36.2
--- NOTE | 2022-03-28 06:02 | ED_ITS ---
HPI - COVID General: Chief Complaint: COVID symptoms Stated Complaint: Fever\Headache Time Seen by Provider: 03/28/22 05:48 Triage information: Has fever, cough or shortness of breath . No known COVID + exposure last 14 days History of Present Illness: 36-year-old female presenting today with fevers, body aches, nausea, vomiting. Patient notes onset of symptoms this evening. She states symptoms are getting gradually worse. Associated symptoms include headache. Headache is considered a severe. No associated neck pain. No vision changes. Headache was gradual in onset. She denies chest pain or shortness of breath. She denies pain or swelling her lower extremities. She denies history of blood clots. She notes diarrhea is nonbloody and nonblack. COVID Results: SARS-CoV-2 Antigen (Rapid) Negative (Negative) 05/04/21 18:22 SARS-CoV-2 (PCR) Detected (NOT DETECT) A 03/28/22 06:20 Coronavirus Type 229E (PCR) Not detected (NOT DETECT) 03/28/22 06:20 Review of Systems General: Reports: 10 or more systems reviewed and unremarkable except in HPI and below PFSH ED PFSH: Medical History History of LEEP (loop electrosurgical excision procedure) of cervix complicating No pertinent past medical history neghx: htn, dm, thyroid, dvt/pe PCP: Dr. Ojeda Ovarian cyst Surgical History History of local excision of skin lesion rectal History of loop electrical excision procedure (LEEP) X2 Family History Father Colon cancer Diabetes Mother Thyroid disease Denies family history of Cervical cancer Ovarian cancer Prostate cancer Clotting disorder Heart disease Hyperlipidemia Breast cancer Bleeding disorder Hypertension Uterine cancer Stroke Female Reproductive History: Date of last menstrual period: 01/19/21 Physical Exam Const: COMMON NORMALS: no acute distress, patient oriented x3 and alert GENERAL APPEARANCE: cooperative ORIENTATION/CONSCIOUSNESS: Yes awake, Yes oriented to person, Yes oriented to place and Yes oriented to time HENMT: COMMON NORMALS: normocephalic, atraumatic, external ears normal, Normal external nose present and moist oral mucous membranes HEAD & SCALP: normal to inspection, normocephalic and atraumatic NOSE: Normal external nose present GENERAL EAR: hearing grossly impaired EXTERNAL EAR: Yes external ears normal Eye: COMMON NORMALS: Equal, round and reactive pupils present, EOMs intact bilaterally, conjunctivae normal and no scleral icterus GENERAL EYE: ap pearance normal, both eyes and all related structures EYELID: eyelids normal CONJUNCTIVA: Yes conjunctivae normal SCLERA: sclerae normal PUPIL: Yes Equal, round and reactive pupils present Neck/C-Spine: COMMON NORMALS: full ROM, supple and no JVD GENERAL: Yes normal visual inspection Lymph: LYMPHATIC: no lymphadenopathy noted and no lymphedema noted Chest: COMMONS NORMALS: normal inspection of the chest Resp: COMMON NORMALS: normal respiratory effort, No retractions and No use of accessory muscles Cardio: COMMON NORMALS: no JVD, regular rate and regular rhythm RATE: regular rate RHYTHM: regular rhythm GI: COMMON NORMALS: Normal to inspection, nondistended, normoactive bowel soun ds present : COMMON NORMALS: Yes no CVA tenderness BLADDER/KIDNEY EXAM: Yes no CVA tenderness Back/Pelvis: COMMON NORMALS: no CVA tenderness and thoracic and lumbar spine normal to inspection Extremity: COMMON NORMALS: normal to inspection, full ROM and capillary refill normal GENERAL: Yes normal exam except as noted Neuro: COMMON NORMALS: patient oriented x3, CN's II-XII intact bilaterally, moves all extremities, no focal motor deficits, no sensory deficits noted and gait normal SENSORIUM/ORIENTATION: Yes alert, Yes oriented to person, Yes oriented to place and Yes oriented to time Psych: COMMON NORMALS: mental status grossly normal, Normal thought process present, cooperative and normal affect THOUGHT PROCESS: Normal thought process present Skin: COMMON NORMALS: no rashes or lesions noted and no wounds GENERAL SKIN EXAM: no rashes or lesions noted Course Vital Signs: Vital signs: Vital Signs Temperature 99.1 F 03/28/22 05:23 Pulse Rate 128 H 03/28/22 07:30 Respiratory Rate 20 H 03/28/22 07:18 Blood Pressure 122/68 03/28/22 07:30 Pulse Oximetry 94 03/28/22 07:30 Oxygen Delivery Me thod 03/28/22 07:30 MDM - COVID Medical Decision Making 36-year-old female presenting with flulike illness. Patient is COVID-positive. Patient p.o. tolerant. Patient with slight tachycardia. Recommended oral hydration. Patient was orally hydrating in the ER today. Rest of exam is benign. Low suspicion for acute life threats at this time. Patient's oxygen s aturation greater than 95% on room air. Strict return precautions were given. Routine outpatient follow-up was recommended. Lab Data Laboratory Results Coronavirus 229E (PCR) Not detected (NOT DETECT) 03/28/22 06:20 SARS-CoV-2 (PCR) Detected (NOT DETECT) A 03/28/22 06:20 SARS-CoV-2 Antigen (Rapid) Negative (Negative) 05/04/21 18:22 SARS-CoV-2 (PCR) Detected (NOT DETECT) A 03/28/22 06:20 Coronavirus Type 229E (PCR) Not detected (NOT DETECT) 03/28/22 06:20 Discharge Plan Discharge Patient Disposition: Home Clinical Impression: COVID Condition: Stable Prescriptions: New diclofenac sodium 75 mg tablet,delayed release (DR/EC) 75 mg PO BID Qty: 30 0RF No Action venlafaxine [Effexor XR] 75 mg capsule,extended release 24hr 75 mg PO DAILY omeprazole 20 mg tablet,delayed release (DR/EC) 20 mg PO DAILY albuterol sulfate 90 mcg/actuation HFA aerosol inhaler 2 inh inhalation Q6H PRN (Reason: shortness of breath or wheezing) Qty: 8.5 0RF ondansetron 4 mg tablet,disintegrating 4 mg PO TID PRN (Reason: nausea and vomiting) Qty: 15 0RF Rx Instructions: pt states she has not needed to take this medication docusate sodium 100 mg Capsule 100 mg PO BID Qty: 60 0RF ibuprofen 800 mg Tablet 800 mg PO Q8H Qty: 30 0RF hydrocodone-acetaminophen 5-325 mg Tablet 1 - 2 tab PO Q4H PRN (Reason: Moderate To Severe Pain) Qty: 30 0RF Discharge Orders: Discharge ED (Routine); Ordered 03/28/22 Ordered By: Angel Restrepo Referrals: Molina Ojeda MD [Primary Care Provider] - Discharge Diet: Advance as tolerated Discharge Activity: Resume usual activity Patient Instructions: Opioid Safety Coding Level of Care Code ED Payroll Human Resources Assistant for Chg Fwd Exam Comprehensive
[2022-03-28] MEDS: acetaminophen 500 mg Tablet 1000 MG PO (07:11)
[2022-03-28] MEDS: ketorolac 30 mg/mL INJ 15 MG IM (07:12)
[2022-03-28 07:18] VITALS: BP 123/75; PULSE 125; RESP 20; O2SAT 95
[2022-03-28 07:24] VITALS: O2SAT 96
[2022-03-28 07:30] VITALS: BP 122/68; PULSE 128; O2SAT 94
[2022-03-28 08:00] VITALS: BP 119/79; PULSE 115; O2SAT 96
[2022-03-28 08:08] LABS: Adenovirus Not Detected (NOT DETECT); Chlamydia Pneumoniae Not Detected (NOT DETECT); Coronavirus 229E,HKU1,NL63,OC4 Not Detected (NOT DETECT); Human Metapneumovirus Not Detected (NOT DETECT); Human Rhinovirus/Enterovirus Not Detected (NOT DETECT); Influenza A Not Detected (NOT DETECT); Influenza A H1 Not Detected (NOT DETECT); Influenza A H1-2009 Not Detected (NOT DETECT); Influenza A H3 Not Detected (NOT DETECT); Influenza B Not Detected (NOT DETECT); Mycoplasma Pneumoniae Not Detected (NOT DETECT); Parainfluenza Virus Type 1 Not Detected (NOT DETECT); Parainfluenza Virus Type 2 Not Detected (NOT DETECT); Parainfluenza Virus Type 3 Not Detected (NOT DETECT); Parainfluenza Virus Type 4 Not Detected (NOT DETECT); Respiratory Syncytial Virus A Not Detected (NOT DETECT); Respiratory Syncytial Virus B Not Detected (NOT DETECT); SARS-COV-2 Detected (NOT DETECT)
[2022-03-28 08:30] VITALS: BP 120/81; PULSE 115; O2SAT 97
== END 2022-03-28 08:50 | disposition home or self-care (01) ==
PROVIDERS: Emergency Provider Emergency Medicine; PCP Family Medicine
DX: U07.1 COVID-19 (principal)
CPT/HCPCS: 87635; 96372; 99284; J1885

== ENCOUNTER 2022-07-21 13:56 | Emergency (ER) | payer BC, SELFPAY ==
[2022-07-21] VITALS (25 sets, daily range): BP systolic 107–156; BP diastolic 67–78; PULSE 91–112; RESP 14–33; TEMP 36.6; O2SAT 97–100; BMI 43.5
--- NOTE | 2022-07-21 14:05 | ECG_ITS ---
Test Date: 2022-07-21 Pat Name: Vanda Easton Department: Room: Gender: Female Duty Manager: : 1985 Requested By: Cristofer Sharpe Order Number: [id number] Raquel MD: Cy Mast M.D. Measurements Intervals [place] Rate: 108 P: 72 GA: 119 QRS: 58 QRSD: 88 T: 57 QT: 327 QTc: 438 Interpretive Statements SINUS TACHYCARDIA WITH SHORT GA INTERVAL ABNORMAL RHYTHM ECG Compared to ECG 02/09/2021 19:27:35 Short GA interval now present Myocardial infarct finding no longer present Electronically Signed On 07-21-2022 18:13:55 JAVA SYBASE DEVELOPER by Cy Mast M.D. [id number]
--- NOTE | 2022-07-21 14:17 | ED_ITS ---
HPI - Chest Pain General: Chief Complaint: Chest Pain Stated Complaint: chest pain, SOB Time Seen by Provider: 07/21/22 14:06 [facility] ED PFSH: Medical History History of LEEP (loop electrosurgical excision procedure) of cervix complicating No pertinent past medical history neghx: htn, dm, thyroid, dvt/pe PCP: Dr. Ojeda Ovarian cyst Surgical History History of local excision of skin lesion rectal History of loop electrical excision procedure (LEEP) X2 Family History Father Colon cancer Diabetes Mother Thyroid disease Denies family history of Cervical cancer Ovarian cancer Prostate cancer Clotting disorder Heart disease Hyperlipidemia Breast cancer Bleeding disorder Hypertension Uterine cancer Stroke Social History Smoking and tobacco status: never smoked Female Reproductive History: Date of last menstrual period: 01/19/21 Course Vital Signs: Vital signs: Vital Signs Temperature 97.8 F 07/21/22 14:01 Pulse Rate 112 H 07/21/22 14:01 Respiratory Rate 14 07/21/22 14:01 Blood Pressure 143/78 07/21/22 14:01 Pulse Oximetry 98 07/21/22 14:01 Oxygen Delivery Me thod 07/21/22 14:01 Discharge Plan Discharge Condition: Stable Prescriptions: No Action venlafaxine [Effexor XR] 75 mg capsule,extended release 24hr 75 mg PO DAILY omeprazole 20 mg tablet,delayed release (DR/EC) 20 mg PO DAILY metformin 500 mg tablet 500 mg PO DAILY prednisone 20 mg tablet 20 mg PO BID amoxicillin 875 mg tablet 875 mg PO BID albuterol sulfate 90 mcg/actuation HFA aerosol inhaler 2 inh inhalation Q6H PRN (Reason: shortness of breath or wheezing) Qty: 8.5 0RF ondansetron 4 mg tablet,disintegrating 4 mg PO TID PRN (Reason: nausea and vomiting) Qty: 15 0RF Rx Instructions: pt states she has not needed to take this medication Referrals: Molina Ojeda MD [Primary Care Provider] - Coding Level of Care Code ED Lead Ruby On Rails Developer for Chg Fwd
--- NOTE | 2022-07-21 14:20 | XRR_ITS ---
PROCEDURE INFORMATION: Exam: XR Chest Exam date and time: 07/21/2022 2:25 PM Age: 36 years old Clinical indication: Pain; Cough and dyspnea; Angina pectoris; Additional info: Dyspnea/cough TECHNIQUE: Imaging protocol: Radiologic exam of the chest. Views: 1 view. COMPARISON: CR XR chest 1V portable [id number] 02/09/2021 5:11 PM FINDINGS: Lungs: The lung bases are suboptimally assessed due to technique however the upper lungs are clear of focal consolidation. Pleural spaces: Unremarkable. No pleural effusion. No pneumothorax. Heart/Mediastinum: Cardiac silhouette appears normal in size. No obvious vascular congestion. Bones/joints: No acute osseous findings. Other findings: Single view was submitted. XR/XR chest 1V portable [id number] IMPRESSION: No obvious acute consolidation. Suboptimal lung base assessment. Followup including lateral view may be obtained if clinically indicated.
--- NOTE | 2022-07-21 14:40 | ED_ITS ---
HPI - Chest Pain General: Chief Complaint: Chest Pain Stated Complaint: chest pain, SOB Time Seen by Provider: 07/21/22 14:06 Source: patient Mode of arrival: ambulatory History of Present Illness: 36-year-old female presents emergency room complaining of sudden onset of substernal chest pain radiating to her left arm began around 730 this morning. She is not had any difficulty breathing she not had any tachycardia no vomiting no diarrhea no fever sweats or chills. She has no known history of any DVT or PE. No recent medication changes she is on low- dose metformin omeprazole ondansetron and venlafaxine. No flulike symptoms or cough. MD complaint: chest pain Onset (ago): hour(s) Timing of current episode: episodic Prior episodes: No Onset: during rest Pain location: substernal and left chest Pain radiation: left arm Severity: mild Quality: tightness and heaviness Relieving factors: nothing Exacerbating factors: nothing Associated symptoms: Reports dyspnea; Deny abdominal pain, diaphoresis, fever(s), leg edema, nausea, palpitations, sense of impending doom, syncope or vomiting Review of Systems Const: Denies: fever(s), chills, fatigue, malaise or diaphoresis ENMT: Denies: throat pain, ear or mastoid pain, nasal discharge or nasal congestion Card: Reports: chest pain; Denies: palpitations, irregular heart rhythm, edema or syncope Resp: Reports: dyspnea GI: Denies: abdominal pain, nausea or vomiting : Denies: flank pain, difficulty voiding, dysuria, urinary frequency or urinary urgency Skin/Breast: Denies: rash or pruritus PFSH ED PFSH: Medical History History of LEEP (loop electrosurgical excision procedure) of cervix complicating No pertinent past medical history neghx: htn, dm, thyroid, dvt/pe PCP: Dr. Ojeda Ovarian cyst Surgical History History of local excision of skin lesion rectal History of loop electrical excision procedure (LEEP) X2 Family History Father Colon cancer Diabetes Mother Thyroid disease Denies family history of Cervical cancer Ovarian cancer Prostate cancer Clotting disorder Heart disease Hyperlipidemia Breast cancer Bleeding disorder Hypertension Uterine cancer Stroke Social History Smoking and tobacco status: never smoked Female Reproductive History: Date of last menstrual period: 01/19/21 Physical Exam Const: COMMON NORMALS: no acute distress GENERAL APPEARANCE: cooperative and comfortable ORIENTATION/CONSCIOUSNESS: Yes awake, Yes oriented to person, Yes oriented to place and Yes oriented to time HENMT: COMMON NORMALS: normocephalic, atraumatic, hearing grossly normal bilaterally, external ears normal, EAC's normal, TM's normal bilaterally, Normal nasal mucous membranes and turbinates present, moist oral mucous membranes and oropharynx normal HEAD & SCALP: normocephalic and atraumatic NOSE: Normal nasal mucous membranes and turbinates present EXTERNAL EAR: Yes external ears normal EXTERNAL AUDITORY CANAL: EAC's normal TYMPANIC MEMBRANE: TM's normal bilaterally Eye: COMMON NORMALS: Equal, round and reactive pupils present, EOMs intact bilaterally, conjunctivae normal and no scleral icterus CONJUNCTIVA: Yes conjunctivae normal PUPIL: Yes Equal, round and reactive pupils present Neck/C-Spine: COMMON NORMALS: full ROM, no lymphadenopathy, supple and no JVD Lymph: LYMPHATIC: no lymphadenopathy noted and no lymphedema noted Resp: COMMON NORMALS: normal respiratory effort, No retractions, No use of accessory muscles and clear to auscultation bilaterally AUSCULTATION: clear to auscultation bilaterally Cardio: COMMON NORMALS: no JVD, regular rate, regular rhythm and No murmurs present (Cardio) RATE: regular rate RHYTHM: regular rhythm GI: COMMON NORMALS: Soft to palpation and No hepatosplenomegaly present AU SCULTATION: Yes normoactive bowel sounds PALPATION: Yes Soft to palpation, No Tenderness to palpation present (GI), No Guarding due to palpation present (GI) and Yes No hepatosplenomegaly present Extremity: COMMON NORMALS: normal to inspection, capillary refill normal, no clubbing, cyanosis or edema, no calf tenderness and no pedal edema Neuro: SENSORIUM/ORIENTATION: Yes oriented to person, Yes oriented to place and Yes oriented to time Skin: COMMON NORMALS: no rashes or lesions noted GENERAL SKIN EXAM: no rashes or lesions noted Course Vital Signs: Vital signs: Vital Signs Temperature 97.8 F 07/21/22 14:01 Pulse Rate 96 07/21/22 16:15 Respiratory Rate 22 H 07/21/22 16:15 Blood Pressure 156/72 07/21/22 16:15 Pulse Oximetry 98 07/21/22 16:15 Oxygen Delivery Me thod 07/21/22 14:01 MDM - Chest Pain Medical Decision Making Trope EKG and D-dimer negative. Discussed with the patient we will go ahead and discharge her home she is not having any symptoms at all now her description of symptoms was not significant for cardiac. Have her follow-up if her symptoms recur or persist. We will change her from omeprazole to Protonix. Medical Records I reviewed the patient's medical records. Lab Data I reviewed the patient's lab results. 07/21/22 14:47 07/21/22 14:47 Radiology Impressions Chest X-Ray 07/21/22 14:20 IMPRESSION: No obvious acute consolidation. Suboptimal lung base assessment. Followup including lateral view may be obtained if clinically indicated. Laboratory Results WBC 11.8 10^3/uL (4.0-10.0) H 07/21/22 14:47 RBC 4.80 10^6/uL (4.1-5.3) 07/21/22 14:47 Hgb 11.7 g/dL (11.5-15.3) 07/21/22 14:47 Hct 38.2 % (37.0-47.0) 07/21/22 14:47 MCV 79.6 fl (81-99) L 07/21/22 14:47 MCH 24.4 pg (28.0-34.0) L 07/21/22 14:47 MCHC 30.6 g/dL (30.0-36.0) 07/21/22 14:47 RDW 16.7 % (12.1-15.1) H 07/21/22 14:47 Plt Count 366 10^3/cmm (130-400) 07/21/22 14:47 MPV 11.5 fL (7.4-10.4) H 07/21/22 14:47 Neut % (Auto) 66.1 % 07/21/22 14:47 Lymph % (Auto) 25.4 % 07/21/22 14:47 [place] % (Auto) 6.4 % 07/21/22 14:47 Eos % (Auto) 1.2 % 07/21/22 14:47 Baso % (Auto) 0.5 % 07/21/22 14:47 Neut # (Auto) 7.81 10^3/uL (1.8-7.7) H 07/21/22 14:47 Lymph # (Auto) 3.0 10^3/uL (0.8-4.8) 07/21/22 14:47 [place] # (Auto) 0.8 10^3/uL (0.2-0.9) 07/21/22 14:47 Eos # (Auto) 0.1 10^3/uL (0.0-0.8) 07/21/22 14:47 Baso # (Auto) 0.1 10^3/uL (0.0-0.1) 07/21/22 14:47 Nucleated RBC % (auto) 0 % 07/21/22 14:47 Nucleated RBCs # 0.0 /100WBC 07/21/22 14:47 D-Dimer 0.54 ug/mIFEU (0-0.59) 07/21/22 14:47 Sodium 138 mmol/L (136-145) 07/21/22 14:47 Potassium 3.7 mmol/L (3.5-5.1) 07/21/22 14:47 Chloride 103 mmol/L (98-107) 07/21/22 14:47 Carbon Dioxide 24 mmol/L (22-29) 07/21/22 14:47 Anion Gap 14.7 (5-19) 07/21/22 14:47 BUN 9 mg/dL (6-20) 07/21/22 14:47 Creatinine 0.6 mg/dL (0.5-0.9) 07/21/22 14:47 GFR Calculation 113.8 mL/min (90-130) 07/21/22 14:47 Glucose 93 mg/dL (65-115) 07/21/22 14:47 Calculated Osmolality 284 mOsm/kg (285-295) L 07/21/22 14:47 Calcium 9.3 mg/dL (8.5-10.5) 07/21/22 14:47 Total Bilirubin 0.9 mg/dL (0.15-1.2) 12/14/22 14:47 AST 21 U/L (0-32) 07/21/22 14:47 ALT 18 U/L (0-33) 07/21/22 14:47 Alkaline Phosphatase 104 U/L (35-105) 07/21/22 14:47 Troponin T Baseline 6 ng/L (0-10) 07/21/22 14:47 Total Protein 7.2 g/dL (6.6-8.7) 07/21/22 14:47 Albumin 4.2 g/dL (3.5-5.2) 07/21/22 14:47 Globulin 3.0 g/dL (1.3-4.6) 07/21/22 14:47 Discharge Plan Discharge Patient Disposition: Home Clinical Impression: Atypical chest pain Condition: Stable Prescriptions: New Protonix 40 mg tablet,delayed release (DR/EC) 40 mg PO DAILY 56 Days Qty: 60 0RF Discontinued omeprazole 20 mg tablet,delayed release (DR/EC) 20 mg PO DAILY No Action venlafaxine [Effexor XR] 75 mg capsule,extended release 24hr 75 mg PO DAILY metformin 500 mg tablet 500 mg PO DAILY ondansetron 4 mg tablet,disintegrating 4 mg PO TID PRN (Reason: nausea and vomiting) Qty: 15 0RF Discharge Orders: Discharge ED (Routine); Ordered 07/21/22 Ordered By: Cristofer Vanegas Referrals: Molina Ojeda MD [Primary Care Provider] - Discharge Diet: Usual diet Discharge Activity: Increase activity as tolerated Patient Instructions: Opioid Safety, Pain Management Activity Restrictions/Additional Instructions: You were seen today for chest pain. Your EKG was normal your troponin and a D- dimer were done and those were also normal. Going to change you from omeprazole to pantoprazole if your symptoms persist follow-up with your primary care doctor. Coding Level of Care Code ED Pulp Making Plant Operator for Chg Fwd Exam Comprehensive
[2022-07-21] MEDS: sodium chloride 0.9% 1,000 ML 999 ML IV (14:45)
[2022-07-21 14:55] LABS: Basophils # 0.1 10^3/uL (0.0-0.1); Basophils % 0.5 %; Eosinophils # 0.1 10^3/uL (0.0-0.8); Eosinophils % 1.2 %; Hematocrit 38.2 % (37.0-47.0); Hemoglobin 11.7 g/dL (11.5-15.3); Lymphocytes % 25.4 %; Mean Corpuscular HGB Conc 30.6 g/dL (30.0-36.0); Mean Corpuscular Hemoglobin 24.4 pg (28.0-34.0); Mean Corpuscular Volume 79.6 fl (81-99); Mean Platelet Volume 11.5 fL (7.4-10.4); Monocytes # 0.8 10^3/uL (0.2-0.9); Monocytes % 6.4 %; Neutrophils # 7.81 10^3/uL (1.8-7.7); Neutrophils % 66.1 %; Nucleated Red Blood Cells % 0 %; Platelet Count 366 10^3/cmm (130-400); Red Cell Distribution Width 16.7 % (12.1-15.1); White Blood Count 11.8 10^3/uL (4.0-10.0)
[2022-07-21 15:10] LABS: D Dimer 0.54 ug/mIFEU (0-0.59)
[2022-07-21 15:13] LABS: Troponin(5th) Baseline 6 ng/L (0-10)
[2022-07-21 15:15] LABS: Alanine Aminotransferase 18 U/L (0-33); Albumin Level 4.2 g/dL (3.5-5.2); Alkaline Phosphatase 104 U/L (35-105); Blood Urea Nitrogen 9 mg/dL (6-20); Calcium 9.3 mg/dL (8.5-10.5); Carbon Dioxide 24 mmol/L (22-29); Chloride 103 mmol/L (98-107); Glomerular Filtration Rate 113.8 mL/min (90-130); Glucose 93 mg/dL (65-115); Osmolality Calculated 284 mOsm/kg (285-295); Sodium 138 mmol/L (136-145); Total Bilirubin 0.9 mg/dL (0.15-1.2); Total Protein 7.2 g/dL (6.6-8.7)
[2022-07-21 15:17] LABS: Anion Gap 14.7 (5-19); Aspartate Amino Transferase 21 U/L (0-32); Potassium 3.7 mmol/L (3.5-5.1)
[2022-07-21 17:36] LABS: Troponin 5 2HR Delta 0 ABS# (0-10)
== END 2022-07-21 17:27 | disposition home or self-care (01) ==
PROVIDERS: Emergency Provider Family Medicine; PCP Family Medicine
DX: R07.89 Other chest pain (principal); Z79.84 Long term (current) use of oral hypoglycemic drugs
CPT/HCPCS: 71045; 80053; 84484; 85025; 85378; 93005; 96360; 99285; J7030

== ENCOUNTER 2022-08-10 18:13 | Emergency (ER) | payer BC, MEDICAID, SELFPAY ==
[2022-08-10 18:34] VITALS: BP 164/94; PULSE 99; RESP 18; TEMP 36.6; O2SAT 99
--- NOTE | 2022-08-10 20:21 | PC.NURSE ---
Labs drawn. Pt tolerated well. Pt given collection cup to obtain urine sample.
[2022-08-10 20:35] LABS: Basophils # 0.1 10^3/uL (0.0-0.1); Basophils % 0.4 %; Eosinophils # 0.2 10^3/uL (0.0-0.8); Eosinophils % 1.1 %; Hematocrit 36.8 % (37.0-47.0); Hemoglobin 11.2 g/dL (11.5-15.3); Mean Corpuscular HGB Conc 30.4 g/dL (30.0-36.0); Mean Platelet Volume 9.6 fL (7.4-10.4); Monocytes # 1.1 10^3/uL (0.2-0.9); Monocytes % 7.5 %; Neutrophils # 9.89 10^3/uL (1.8-7.7); Neutrophils % 69.5 %; Nucleated Red Blood Cells % 0 %; Platelet Count 398 10^3/cmm (130-400); Red Blood Count 4.66 10^6/uL (4.1-5.3); Red Cell Distribution Width 15.9 % (12.1-15.1); White Blood Count 14.2 10^3/uL (4.0-10.0)
[2022-08-10 20:50] LABS: HCG, Serum Qual Negative (Negative)
[2022-08-10 20:59] LABS: Alanine Aminotransferase 22 U/L (0-33); Albumin Level 4.2 g/dL (3.5-5.2); Alkaline Phosphatase 93 U/L (35-105); Anion Gap 13.5 (5-19); Aspartate Amino Transferase 15 U/L (0-32); Blood Urea Nitrogen 12 mg/dL (6-20); Calcium 9.7 mg/dL (8.5-10.5); Carbon Dioxide 27 mmol/L (22-29); Chloride 100 mmol/L (98-107); Globulin 3.2 g/dL (1.3-4.6); Glomerular Filtration Rate 71.3 mL/min (90-130); Glucose 92 mg/dL (65-115); Lipase 28 U/L (13-60); Osmolality Calculated 283 mOsm/kg (285-295); Potassium 3.5 mmol/L (3.5-5.1); Sodium 137 mmol/L (136-145); Total Protein 7.4 g/dL (6.6-8.7)
[2022-08-10 21:07] VITALS: BP 146/98; PULSE 98; RESP 18; O2SAT 99
--- NOTE | 2022-08-10 21:33 | CTR_ITS ---
PROCEDURE INFORMATION: Exam: CT Abdomen And Pelvis Without Contrast Exam date and time: 08/10/2022 9:50 PM Age: 36 years old Clinical indication: Pain; Other: Flank; Prior surgery; Surgery date: 6+ months; Surgery type: RT ovary; Additional info: Kidney stone on the right since 08/02 TECHNIQUE: Imaging protocol: Computed tomography of the abdomen and pelvis without contrast. Radiation optimization: All CT scans at this facility use at least one of these dose optimization techniques: automated exposure control; mA and/or kV adjustment per patient size (includes targeted exams where dose is matched to clinical indication); or iterative reconstruction. COMPARISON: CT kidney stone [id number] 02/08/2018 7:40 AM RADIATION DOSE METRICS: Total DLP (mGy-cm): 1398.38 FINDINGS: Liver: Severe fatty infiltration of the liver. Gallbladder and bile ducts: Normal. No calcified stones. No ductal dilation. Pancreas: Normal. No ductal dilation. Spleen: 13.6 cm mild splenomegaly. Adrenal glands: Normal. No mass. Kidneys and ureters: One or more nonobstructing left renal calyceal stones. 7 mm right ureteral stone at the level of S3 with moderate to severe right hydronephrosis. Stomach and bowel: Unremarkable. No obstruction. No mucosal thickening. Appendix: No evidence of appendicitis. Intraperitoneal space: Unremarkable. No free air. No significant fluid collection. Vasculature: One or more calcified pelvic phleboliths. Lymph nodes: Unremarkable. No enlarged lymph nodes. Urinary bladder: Unremarkable as visualized. Reproductive: Unremarkable as visualized. Bones/joints: Unremarkable. No acute fracture. Soft tissues: Unremarkable. CT/CT kidney stone [id number] IMPRESSION: 1. Severe fatty infiltration of the liver. 2. 13.6 cm mild splenomegaly. 3. 7 mm right ureteral stone at the level of S3 with moderate to severe right hydronephrosis.
[2022-08-10 21:40] LABS: Blood Urine 2+ (Negative); Glucose Urine UA Norm (Normal); Ketones Urine Negative (Negative); Nitrate Urine Negative (Negative); Protein Urine Trace (Negative); Urine Appearance Clear (CLEAR); Urine Color Yellow (Yellow); pH Urine 5 (5-7)
[2022-08-10 21:41] LABS: Add Urine Microscopic? YES; Bilirubin Urine Neg (Negative); Leukocyte Esterase Urine Negative (Negative); Urobilinogen Urine Norm (Negative); WBC Urine 0-4 /hpf (0-5)
[2022-08-10 21:42] LABS: Add Urine Culture? No; Amorphous Sediment Urine 1+ /hpf
--- NOTE | 2022-08-10 21:42 | ED_ITS ---
HPI - Abdominal Pain General: Chief Complaint: Abdominal Pain Stated Complaint: Kidney Stone Pain Time Seen by Provider: 08/10/22 21:14 Source: patient Mode of arrival: ambulatory Limitations: no limitations History of Present Illness: 36-year-old female has had a history of kidney stones states she was diagnosed with a kidney stone by history on she not have any imaging states that she has had worsening pain that started today states pain sharp in nature rates it a 9 out of 10 denies any nausea or vomiting she denies any fevers. Associated Symptoms: Denies chills, diarrhea, fever(s), nausea and vomiting Related Data: Date of Last Menstrual Period: 01/19/21 Review of Systems Const: Denies: fever(s), chills, body aches or change in appetite Eyes: Denies: blurry vision or eye discomfort ENMT: Denies: throat pain or dental pain Card: Denies: chest pain Resp: Denies: dyspnea GI: Denies: abdominal pain, nausea, vomiting or diarrhea : Reports: flank pain Musc: Denies: neck pain or back pain Skin/Breast: Denies: rash Neuro: Denies: headache(s) Psych: Denies: depression Denny/Lymph: Denies: easy bruising All/Imm: Denies: urticaria PFSH ED PFSH: Medical History History of LEEP (loop electrosurgical excision procedure) of cervix complicating No pertinent past medical history neghx: htn, dm, thyroid, dvt/pe PCP: Dr. Ojeda Ovarian cyst Surgical History History of local excision of skin lesion rectal History of loop electrical excision procedure (LEEP) X2 Family History Father Colon cancer Diabetes Mother Thyroid disease Denies family history of Cervical cancer Ovarian cancer Prostate cancer Clotting disorder Heart disease Hyperlipidemia Breast cancer Bleeding disorder Hypertension Uterine cancer Stroke Social History Smoking and tobacco status: never smoked Female Reproductive History: Date of last menstrual period: 01/19/21 Physical Exam Const: COMMON NORMALS: no acute distress, patient oriented x3 and healthy appearing HENMT: COMMON NORMALS: normocephalic and atraumatic HEAD & SCALP: normocephalic and atraumatic Eye: COMMON NORMALS: Equal, round and reactive pupils present and EOMs intact bilaterally PUPIL: Yes Equal, round and reactive pupils present Neck/C-Spine: COMMON NORMALS: full ROM and supple Chest: COMMONS NORMALS: normal inspection of the chest and normal palpation of entire chest wall Resp: COMMON NORMALS: normal respiratory effort, No retractions, No use of accessory muscles and clear to auscultation bilaterally AUSCULTATION: clear to auscultation bilaterally Cardio: COMMON NORMALS: regular rate, regular rhythm and No murmurs present (Cardio) RATE: regular rate RHYTHM: regular rhythm GI: COMMON NORMALS: Normal to inspection, nondistended, normoactive bowel sounds present, Soft to palpation, non-tender and no masses PALPATION: Yes Soft to palpation Extremity: COMMON NORMALS: normal to inspection and full ROM Neuro: COMMON NORMALS: patient oriented x3, moves all extremities and no focal motor deficits Psych: COMMON NORMALS: mental status grossly normal, Normal thought process present and cooperative THOUGHT PROCESS: Normal thought process present Skin: COMMON NORMALS: no rashes or lesions noted and no wounds GENERAL SKIN EXAM: no rashes or lesions noted Course Vital Signs: Vital signs: Vital Signs Temperature 97.9 F 08/10/22 18:34 Pulse Rate 99 08/10/22 18:34 Respiratory Rate 18 08/10/22 18:34 Blood Pressure 164/94 08/10/22 18:34 Pulse Oximetry 99 08/10/22 18:34 MDM - Abdominal Pain Medical Decision Making Patient presents here with a kidney stone her pain is much improved she is well- appearing here she is stable for discharge she is to follow-up with Dr. Lowery return if worsening she understands agrees to plan. Lab Data 08/10/22 20:18 08/10/22 20:18 Labs/Radiology: Radiology Impressions Abdomen/Pelvis CT 08/10/22 21:33 IMPRESSION: 1. Severe fatty infiltration of the liver. 2. 13.6 cm mild splenomegaly. 3. 7 mm right ureteral stone at the level of S3 with moderate to severe right hydronephrosis. Laboratory Results WBC 14.2 10^3/uL (4.0-10.0) H 08/10/22 20:18 RBC 4.66 10^6/uL (4.1-5.3) 08/10/22 20:18 Hgb 11.2 g/dL (11.5-15.3) L 08/10/22 20:18 Hct 36.8 % (37.0-47.0) L 08/10/22 20:18 MCV 79.0 fl (81-99) L 08/10/22 20:18 MCH 24.0 pg (28.0-34.0) L 08/10/22 20:18 MCHC 30.4 g/dL (30.0-36.0) 08/10/22 20:18 RDW 15.9 % (12.1-15.1) H 08/10/22 20:18 Plt Count 398 10^3/cmm (130-400) 08/10/22 20:18 MPV 9.6 fL (7.4-10.4) 08/10/22 20:18 Neut % (Auto) 69.5 % 08/10/22 20:18 Lymph % (Auto) 21.0 % 08/10/22 20:18 Shackelford % (Auto) 7.5 % 08/10/22 20:18 Eos % (Auto) 1.1 % 08/10/22 20:18 Baso % (Auto) 0.4 % 08/10/22 20:18 Neut # (Auto) 9.89 10^3/uL (1.8-7.7) H 08/10/22 20:18 Lymph # (Auto) 3.0 10^3/uL (0.8-4.8) 08/10/22 20:18 [place]ackelford # (Auto) 1.1 10^3/uL (0.2-0.9) H 08/10/22 20:18 Eos # (Auto) 0.2 10^3/uL (0.0-0.8) 08/10/22 20:18 Baso # (Auto) 0.1 10^3/uL (0.0-0.1) 08/10/22 20:18 Nucleated RBC % (auto) 0 % 08/10/22 20:18 Nucleated RBCs # 0.0 /100WBC 08/10/22 20:18 Sodium 137 mmol/L (136-145) 08/10/22 20:18 Potassium 3.5 mmol/L (3.5-5.1) 08/10/22 20:18 Chloride 100 mmol/L (98-107) 08/10/22 20:18 Carbon Dioxide 27 mmol/L (22-29) 08/10/22 20:18 Anion Gap 13.5 (5-19) 08/10/22 20:18 BUN 12 mg/dL (6-20) 08/10/22 20:18 Creatinine 0.9 mg/dL (0.5-0.9) 08/10/22 20:18 GFR Calculation 71.3 mL/min (90-130) L 08/10/22 20:18 Glucose 92 mg/dL (65-115) 08/10/22 20:18 Calculated Osmolality 283 mOsm/kg (285-295) L 08/10/22 20:18 Calcium 9.7 mg/dL (8.5-10.5) 08/10/22 20:18 Total Bilirubin 1.0 mg/dL (0.15-1.2) 08/10/22 20:18 AST 15 U/L (0-32) 08/10/22 20:18 ALT 22 U/L (0-33) 08/10/22 20:18 Alkaline Phosphatase 93 U/L (35-105) 08/10/22 20:18 Total Protein 7.4 g/dL (6.6-8.7) 08/10/22 20:18 Albumin 4.2 g/dL (3.5-5.2) 08/10/22 20:18 Globulin 3.2 g/dL (1.3-4.6) 08/10/22 20:18 Lipase 28 U/L (13-60) 08/10/22 20:18 HCG, Qual Negative (Negative) 08/10/22 20:18 Urine Color Yellow (Yellow) 08/10/22 21:00 Urine Appearance Clear (CLEAR) 08/10/22 21:00 Urine pH 5 (5-7) 08/10/22 21:00 Ur Specific Welches 1.030 (1.005-1.030) 08/10/22 21:00 Urine Protein Trace (Negative) 08/10/22 21:00 Urine Glucose (UA) Norm (Normal) 08/10/22 21:00 Urine Ketones Negative (Negative) 08/10/22 21:00 Urine Blood 2+ (Negative) H 08/10/22 21:00 Urine Nitrate Negative (Negative) 08/10/22 21:00 Urine Bilirubin Neg (Negative) 08/10/22 21:00 Urine Urobilinogen Norm mg/dL (Negative) 08/10/22 21:00 Ur Leukocyte Esterase Negative (Negative) 08/10/22 21:00 Urine RBC 10-15 /hpf (0-2) H 08/10/22 21:00 Urine WBC 0-4 /hpf (0-5) H 08/10/22 21:00 Ur Squamous Epith Cells 5-10 /hpf (0-5) H 08/10/22 21:00 Amorphous Sediment 1+ /hpf 08/10/22 21:00 Urine Bacteria None /hpf (NONE) 08/10/22 21:00 Discharge Plan Discharge Patient Disposition: Home Clinical Impression: Kidney stone Condition: Stable Prescriptions: New hydrocodone-acetaminophen 5-325 mg tablet 1 tab PO Q6H PRN (Reason: pain) Qty: 14 0RF ondansetron 4 mg tablet,disintegrating 4 mg PO Q6H PRN (Reason: nausea and vomiting) Qty: 14 0RF Flomax 0.4 mg capsule 0.4 mg PO DAILY Qty: 5 0RF No Action venlafaxine [Effexor XR] 75 mg capsule,extended release 24hr 75 mg PO DAILY metformin 500 mg tablet 500 mg PO DAILY Protonix 40 mg tablet,delayed release (DR/EC) 40 mg PO DAILY 56 Days Qty: 60 0RF ondansetron 4 mg tablet,disintegrating 4 mg PO TID PRN (Reason: nausea and vomiting) Qty: 15 0RF Discharge Orders: Discharge ED (Routine); Ordered 08/10/22 Ordered By: Teresa Deluca Referrals: Rosalio Lowery MD [Physician] - 1-3 days Molina Ojeda MD [Primary Care Provider] - Discharge Diet: Advance as tolerated Discharge Activity: Resume usual activity Patient Instructions: Opioid Safety, Pain Management Coding Level of Care Code ED Scientific Director for Chg Fwd Exam Comprehensive
[2022-08-10] MEDS: ondansetron 2 mg/ML SDV 2 mL 4 MG IVP (22:17)
[2022-08-10] MEDS: HYDROmorphone 1 mg/mL INJ 1 mL 0.5 MG IVP (22:17)
[2022-08-10] MEDS: HYDROcodone-acetaminophen 5-325 mg Tablet 1 TAB PO (23:28)
[2022-08-10 23:49] VITALS: BP 134/91; PULSE 91; RESP 18; O2SAT 98
--- NOTE | 2022-08-11 09:24 | DCPLANNER ---
Addendum entered by Renetta Sousa 08/13/22 13:07: Patient had follow up appointment schedule with urology - patient did attend appointment. Original Note: commercial lending relationship manager had message to schedule a follow up appointment for patient with urology. commercial lending relationship manager sent patients information to the front office staff at urology. Patients information will be printed and reviewed. Clinic will call patient with appointment information.
== END 2022-08-10 23:52 | disposition home or self-care (01) ==
PROVIDERS: Emergency Provider Emergency Medicine; PCP Family Medicine
DX: N13.2 Hydronephrosis with renal and ureteral calculous obstruction (principal)
CPT/HCPCS: 74176; 80053; 81001; 83690; 84703; 85025; 96374; 96375; 99285; J1170; J2405

== ENCOUNTER 2022-08-13 11:22 | Outpatient (CLI) | payer BC, MEDICAID, SELFPAY ==
--- NOTE | 2022-08-13 11:33 | XR_ITS ---
WS: [id number] KUB, AP view, 08/13/2022 Clinical Data: stones Comparison: KUB, 03/02/2018. Findings: There is a 0.8 cm calcification overlying the right S3 foramen of the sacrum which probably represent s a distal right ureteral calculus. No abnormal intraabdominal masses are seen. There is no dilatated small bowel or evidence of obstruct ion. There is a moderate amount of fecal material throughout the colon. XR/XR KUB [id number] Impression: Probable distal right ureteral calculus.
== END 2022-08-13 11:23 | disposition home or self-care (01) ==
LOC: RAD 11:23
PROVIDERS: PCP Family Medicine; Visit Provider Urology
DX: N20.0 Calculus of kidney (principal)
CPT/HCPCS: 74018

== ENCOUNTER 2022-08-20 09:21 | Outpatient (CLI) | payer MEDICAID, SELFPAY ==
--- NOTE | 2022-08-20 09:34 | XR_ITS ---
WS: [email or web address] XR KUB [id number] REASON FOR EXAM: STONES FINDINGS: The distal right ureteral calculus demonstrated on 08/23/2022 has moved less than a centimeter further distally compared to the previous exam. No other urinary tract calculi identified. No other abdominal abnormality. XR/XR KUB [id number] IMPRESSION: Minimal distal progression of distal right ureteral calculus as above.
== END 2022-08-20 09:22 | disposition home or self-care (01) ==
PROVIDERS: PCP Family Medicine; Visit Provider Urology
DX: N20.1 Calculus of ureter (principal)
CPT/HCPCS: 74018; 81003

== ENCOUNTER 2022-08-27 09:38 | Outpatient (CLI) | payer MEDICAID, SELFPAY ==
--- NOTE | 2022-08-27 09:30 | XR_ITS ---
WS: [email or web address] XR KUB [id number] REASON FOR EXAM: STONES FINDINGS: Compared to the abdomen examination of 08/20/2022, the distal right ureteral calculus is migrated 2 cm toward the urinary bladder. No other significant interval change in the abdomen is identified. XR/XR KUB [id number] IMPRESSION: Distal migration of distal right ureteral calculus.
== END 2022-08-27 09:39 | disposition home or self-care (01) ==
PROVIDERS: PCP Family Medicine; Visit Provider Urology
DX: N20.1 Calculus of ureter (principal)
CPT/HCPCS: 74018

== ENCOUNTER 2022-09-01 06:58 | Day surgery (SDC) | payer MEDICAID, SELFPAY ==
[2022-08-31 09:30] VITALS: BMI 42.7
[2022-09-01] VITALS (12 sets, daily range): BP systolic 104–161; BP diastolic 55–97; PULSE 79–133; RESP 12–20; TEMP 36.2–38; O2SAT 93–100
--- NOTE | 2022-09-01 07:05 | XR_ITS ---
WS: [email or web address] Exam: XR KUB [id number] Date/Time of Exam: 09/01/2022 7:07 AM Reason For Exam: Right ureteroscopy Comparison 08/20/2022. No bowel obstruction or free air. Right pelvic calcification representing a known distal right ureter al stone is unchanged in location. No sign of organ enlargement. Bony structures are intact. Mild lev oscoliosis of the lumbar spine. XR/XR KUB [id number] IMPRESSION: 1. Distal right ureteral calculus unchanged in location since previous exam. 2. No acute abdominal finding.
--- NOTE | 2022-09-01 07:05 | SC_ITS ---
WS: [email or web address] Exam: C-arm [facility] for Urology Date/Time of Exam: 09/01/2022 7:05 AM Reason For Exam: Right ureteroscopy Limited anterior-posterior images of the right abdomen pelvis are submitted. The images depict a guid ewire and retrograde catheter in the right ureter. A ureteroscope is seen in the lower right ureter. No other significant finding on this limited series.
[2022-09-01] MEDS: sodium chloride 0.9% 1,000 ML 30 ML IV (07:28)
[2022-09-01 07:31] LABS: OR HCG Qualitative Urine Negative (Negative)
--- NOTE | 2022-09-01 07:50 | ANES.PREANE2 ---
Pre-Anesthetic Assessment Height/Weight: Height 1.68 m Weight 120.202 kg Temp Pulse Resp BP Pulse Ox O2 Del Method 97.1 F L 133 H 19 H 161/97 96 09/01/22 07:16 09/01/22 07:16 09/01/22 07:16 09/01/22 07:16 09/01/22 07:16 09/01/22 07:16 Preop Diagnosis: Refractory right distal ureteral stone Operation Date: 09/01/22 08:30 Proposed Procedures p Cystoscopy, Right : Retrograde, Ureteroscopy, laser, stent [id number], [id number] modifier 26, 63292,N20.6(Not Applicable) - Rosalio Lowery MD s Retrograde Pyelogram(Right) - Rosalio Lowery MD s Ureteroscopy(Right) - Rosalio Lowery MD s Laser Lithotripsy(Right) - MD shantell Billings Ureteral Stent Placement(Right) - Rosalio Lowery MD Familial anesthetic complications: None Was Beta Karlos taken within 24 hours: N/A Was Clonidine taken within 24 hours: N/A Last intake: Intake Last Liquid Date 08/31/22 Last Liquid Time 23:00 Last Solid Date 08/31/22 Last Solid Time 21:00 Social No alcohol and No tobacco Exam alert, oriented x 3, clear to auscultation bilaterally and regular rate & rhythm Airway Mallampati: Class II Dentition: full Pulmonary Asthma GI Gastroesophageal Reflux Disease Metabolic Morbid Obesity Anesthetic Plan ASA status: 2 Anesthesia: General Risk of > 500 ml blood loss (7ml/kg in children): No Medications/Allergies Home Medications Medication Instructions Recorded Confirmed Last Taken Type venlafaxine 75 mg capsule,extended 75 mg PO DAILY 01/27/22 09/01/22 09/01/22 History release 24 hr (Effexor XR) metformin 500 mg tablet 500 mg PO DAILY 04/08/22 08/31/22 1 Day Ago History ~08/30/22 ondansetron 4 mg disintegrating 4 mg PO Q6H PRN nausea and 08/10/22 08/31/22 1 Week Ago Rx tablet vomiting #14 tabs ~08/24/22 tamsulosin 0.4 mg capsule (Flomax) 0.4 mg PO DAILY #5 caps 08/10/22 08/31/22 1 Week Ago Rx ~08/24/22 oxycodone-acetaminophen 5 mg-325 1 tab PO Q6H PRN Ureteral calculus 08/13/22 08/31/22 2 Days Ago Rx mg tablet (Percocet) 5 days #20 tabs ~08/29/22 omeprazole 20 mg capsule,delayed 20 mg PO DAILY 08/20/22 09/01/22 09/01/22 History release Allergies Allergy/AdvReac Type Severity Reaction Status Date / Time No Known Allergies Allergy Verified 09/01/22 07:13 Current Medications Generic Name Dose Route Start Last Admin Trade Name Freq PRN Reason Stop Dose Admin Sodium Chloride 1,000 mls @ 30 mls/hr 09/01/22 07:15 09/01/22 07:28 Sodium Chloride 0.9% IV 09/02/22 07:14 30 mls/hr .Q24H JOHN Administration PFSH Anesthesia Medical History History of LEEP (loop electrosurgical excision procedure) of cervix complicating No pertinent past medical history neghx: htn, dm, thyroid, dvt/pe PCP: Dr. Ojeda Ovarian cyst Urolithiasis Surgical History History of local excision of skin lesion rectal History of loop electrical excision procedure (LEEP) X2 Family History Father Colon cancer Diabetes Mother Thyroid disease Denies family history of Cervical cancer Ovarian cancer Prostate cancer Clotting disorder Heart disease Hyperlipidemia Breast cancer Bleeding disorder Hypertension Uterine cancer Stroke Social History Smoking and tobacco status: never smoked Alcohol intake: never Marital status: Legally Current occupational status: unemployed History of recent travel: No Female Reproductive History Date of last menstrual period: 01/19/21 Data Anesthesia Cardiac Studies: No Data to Display
--- NOTE | 2022-09-01 09:28 | P.HPUD_ITS ---
Surgery/Procedure H&P Update DATE OF PROCEDURE: September 01, 2022 DATE H&P PERFORMED: 08/27/22 H&P UPDATE INFORMATION: I have reviewed H&P completed within last 30 days, I have examined patient prior to procedure, No changes to prior documentation and H&P is in [facility] on date indicated PREOP DIAGNOSIS: Refractory right distal ureteral stone PLANNED PROCEDURE: Operation Date: 09/01/22 08:30 Proposed Procedures p Cystoscopy, Right : Retrograde, Ureteroscopy, laser, stent [id number], [id number] modifier 26, 97730,N20.6(Not Applicable) - Rosalio Lowery MD s Retrograde Pyelogram(Right) - MD shantell Billings Ureteroscopy(Right) - MD shantell Billings Laser Lithotripsy(Right) - MD shantell Billings Ureteral Stent Placement(Right) - Rosalio Lowery MD
[2022-09-01] MEDS: levofloxacin-dextrose 5 % 500 MG/100 ML PREMIX 100 MG IV (09:36)
--- NOTE | 2022-09-01 10:41 | PM.OP ---
Operative Report Date of procedure: September 01, 2022 Pre-op diagnosis: Refractory right distal ureteral stone Post-op diagnosis: Refractory right distal ureteral stone Procedure done: 1. Cystoscopy, RIGHT retrograde ureteropyelogram 2. Right ureteroscopy, laser lithotripsy, stent Implants: Right ureteral stent: 6 [place] by 26 cm double-pigtail without string Specimens removed/disposition: Stone fragments Pathology: Stone fragments Surgeon: Sebastián Estimated blood loss: Minimal Urine output: Not measured Complications: None Findings: Anesthesia: General Condition: Stable Disposition: PACU Intraoperative findings: Large stone in the expected position. Easily accessible with ureteroscope and completely fragmented with laser lithotripsy 6 [place] by 26 cm double-pigtail stent without string left indwelling at the completion procedure Did well Brief History: Lisa is a very pleasant 36-year-old white female with a history of stones. She was recently diagnosed with a large roughly 8 mm right ureteral stone causing obstruction. It was located about the level of the pelvic vessels. Initially she wanted to see if she could pass the stone and on serial KUBs it did progress about 2 cm but then has stalled. She still having some intermittent pain and elected to proceed with intervention. Endoscopic treatment was selected Only additional stones in the kidneys include us very small punctate calcification in the LEFT interpolar area Procedure: After routine preoperative evaluation examination and obtaining of informed consent she was taken to the operating suite on 09/01/2022 where general anesthesia was administered without difficulty after appropriate timeout was performed, SCDs confirmed to be functioning, preoperative antibiotics administered, beta-izabel protocol confirmed. Prepped and draped in the usual sterile fashion in dorsolithotomy position. 21 [place] cystoscope with 30 degree lens was introduced into the urethra meatus and advanced into the bladder under videoscopy. Bladder was systematically examined. No stone was seen. An 8 [place] cone-tip catheter was then fed into the right ureteral orifice for RIGHT RETROGRADE URETEROPYELOGRAM demonstrating: Normal course and caliber of the distal ureter. Filling defect consistent with a stone was encountered in its expected position. The ureter proximal to the stone was dilated. Pyelocalyceal system showed no additional stones. A flexible tip guidewire was then advanced up the right ureter bypassing the stone and curling in the area of the upper pole calyx. A second guidewire was passed. The first was secured to the drapes as a safety wire. The second was used as a working wire. A 24 cm ureteral access sheath was used for distal ureteral dilation and passed over the working wire to below the level of the stone. The inner sheath was removed. A 7 [place] offset semirigid ureteroscope was then advanced up the right ureter through the sheath and the stone was encountered in its expected position. It was fragmented with a 365 ?m thulium superpulse laser fiber into very small pieces most of which flushed through the sheath. The remaining pieces were basketed with a X catch basket. No residual stone fragments of any consequence were left in the ureter and the scope had been passed to the proximal ureter confirmed no proximal migration Final inspection of the ureter showed the expected inflammatory changes where the stone of been located and for that reason a stent was placed. A 6 [place] by 26 cm double-pigtail stent was advanced over the guidewire through the cystoscope into appropriate position as confirmed via fluoroscopy and cystoscopy. Bladder was cleared of any fragments. Procedure was completed. She tolerated procedure well without complications and was awakened in the operating room and returned to PACU in stable condition. PLANS: 1. Anticipate discharge from outpatient surgery 2. Follow-up in 2 weeks for cystoscopy and stent removal
--- NOTE | 2022-09-01 11:04 | PC.NURSE ---
No airway on arrival. Deep snoring. SaO2 99% on simple mask @ 8/l of O2. Attempted airway. patient spit airway out immediately.
--- NOTE | 2022-09-01 11:19 | PC.NURSE ---
Requested a bedpan. Unable to void @ this time. Requested quintana be left @ this time.
--- NOTE | 2022-09-01 11:28 | PC.NURSE ---
Still unable to void. Bedpan removed
--- NOTE | 2022-09-01 14:10 | ANE.PACU2 ---
Inpatient post-anesthesia follow up: Airway intact: Yes Vital signs: Temperature 100.4 F Pulse Rate 88 Respiratory Rate 17 Blood Pressure 104/78 Pulse Oximetry 98 Oxygen Delivery Me thod Room Air Oxygen Flow Rate 8 Fraction of Inspir ed Oxygen Hydration adequate: Yes Nausea and vomiting: No Pain level: 1 Mental status: Baseline
== END 2022-09-01 12:17 | disposition home or self-care (01) ==
PROVIDERS: PCP Family Medicine; Visit Provider Urology
PROC: 0TJB8ZZ Inspection of Bladder, Via Natural or Artificial Opening Endoscopic (ICD-10-PCS; CPT 52000; principal; 2022-09-01 08:20)
PROC: (CPT 74420; 2022-09-01 08:20)
PROC: 0TJ98ZZ Inspection of Ureter, Via Natural or Artificial Opening Endoscopic (ICD-10-PCS; CPT 52351; 2022-09-01 08:20)
PROC: (CPT 52356; 2022-09-01 08:20)
PROC: (CPT 50605; 2022-09-01 08:20)
DX: N20.1 Calculus of ureter (principal); K21.9 Gastro-esophageal reflux disease without esophagitis; E66.01 Morbid (severe) obesity due to excess calories; Z68.41 Body mass index [BMI] 40.0-44.9, adult; Z79.84 Long term (current) use of oral hypoglycemic drugs
CPT/HCPCS: 52356; 74018; 76000; 81025; 82365; 84703; 88300; C2625; J1956; J2250; J2710; J3010; J3490; J7030

== ENCOUNTER 2022-09-14 12:50 | Outpatient (CLI) | payer MEDICAID, SELFPAY ==
--- NOTE | 2022-09-14 12:58 | XR_ITS ---
WS: [email or web address] XR KUB [id number] REASON FOR EXAM: stones FINDINGS: Properly positioned right ureteral stent. Previously demonstrated distal right ureteral calculus no longer identifiable. No other urinary tract calculi identified. XR/XR KUB [id number] IMPRESSION: Right ureteral stent with absence of previously identified right ureteral calcu sebastian.
== END 2022-09-14 12:51 | disposition home or self-care (01) ==
PROVIDERS: PCP Family Medicine; Visit Provider Urology
DX: N20.1 Calculus of ureter (principal); Z96.0 Presence of urogenital implants
CPT/HCPCS: 52310; 74018; 81003

== ENCOUNTER → 2023-02-15 14:43 | Outpatient (BNVA) | payer MEDICAID, SELFPAY | PROVIDERS: PCP Family Medicine; Visit Provider Nurse Practitioner Family | DX: E66.01 Morbid (severe) obesity due to excess calories (principal); R73.03 Prediabetes; I10 Essential (primary) hypertension; D64.9 Anemia, unspecified | CPT/HCPCS: 80053; 83036; 84439; 84443; 84481; 85025 ==

== ENCOUNTER 2023-03-07 13:49 | Outpatient (CLI) | payer MEDICAID, SELFPAY ==
--- NOTE | 2023-03-07 14:00 | US_ITS ---
WS: [email or web address] US pelv w/transvag [id number] HISTORY: R10.2 - Pelvic and perineal pain COMPARISON: None available. Uterus: 9.5 cm x 5.1 cm x 4.8 cm. Normal size anteverted uterus. No fibroid or mass. Small nabothian cysts. Endometrium: 0.5 cm. Normal. Right ovary: Prior oophorectomy. No adnexal mass. Left ovary: 5.2 cm x 5.7 cm x 4.9 cm. Enlarged ovary with a simple cyst. The cyst measures 4.7 x 4.6 x 4.6 cm. No solid component. No free fluid in the cul-de-sac. US/US pelv w/transvag [id number] IMPRESSION: 1. Status post RIGHT oophorectomy. 2. Normal endometrium. 3. O-RADS 2, LEFT ovarian cyst. Almost certainly benign. No imaging follow-up necessary.
== END 2023-03-07 13:50 | disposition home or self-care (01) ==
PROVIDERS: PCP Family Medicine; Visit Provider Nurse Practitioner Family
DX: R10.2 Pelvic and perineal pain (principal)
CPT/HCPCS: 76830; 76856

== ENCOUNTER → 2023-03-09 13:26 | Outpatient (BNVA) | payer MEDICAID, SELFPAY | PROVIDERS: PCP Nurse Practitioner Family; Visit Provider Nurse Practitioner Family | DX: D64.9 Anemia, unspecified (principal) | CPT/HCPCS: 82270; 82607; 82728; 83550; 85025 ==

== ENCOUNTER → 2023-04-14 09:16 | Outpatient (BNVA) | payer MEDICAID, SELFPAY | PROVIDERS: PCP Nurse Practitioner Family; Visit Provider Nurse Practitioner Women's Health | DX: Z12.4 Encounter for screening for malignant neoplasm of cervix (principal) | CPT/HCPCS: 81025; 87624 ==

== ENCOUNTER 2023-08-31 15:33 | Observation (INO) | payer MEDICAID, SELFPAY ==
[2023-08-19 13:02] LABS: Basophils # 0.1 10^3/uL (0.0-0.1); Basophils % 0.5 %; Eosinophils # 0.1 10^3/uL (0.0-0.8); Eosinophils % 1.2 %; Hematocrit 39.7 % (36-47); Lymphocytes # 2.3 10^3/uL (0.8-4.8); Lymphocytes % 24.3 %; Mean Corpuscular HGB Conc 31.5 g/dL (30-55); Mean Corpuscular Hemoglobin 25.3 pg (27-33); Mean Corpuscular Volume 80.4 fl (85-98); Monocytes # 0.5 10^3/uL (0.2-0.9); Monocytes % 5.4 %; Neutrophils # 6.46 10^3/uL (1.8-7.7); Neutrophils % 68.2 %; Nucleated Red Blood Cells % 0 %; Platelet Count 407 10^3/cmm (157-399); Red Blood Count 4.94 10^6/uL (3.85-5.65); Red Cell Distribution Width 14.8 % (12.1-15.1); White Blood Count 9.47 10^3/uL (3.29-11.43)
[2023-08-19 13:25] LABS: Anion Gap 15.6 (5-19); Blood Urea Nitrogen 12 mg/dL (6-20); Calcium 9.7 mg/dL (8.5-10.5); Carbon Dioxide 25 mmol/L (22-29); Chloride 103 mmol/L (98-107); Glomerular Filtration Rate 70.8 mL/min (90-130); Glucose 90 mg/dL (65-115); Osmolality Calculated 289 mOsm/kg (285-295); Potassium 3.6 mmol/L (3.5-5.1); Sodium 140 mmol/L (136-145)
--- NOTE | 2023-08-19 13:40 | P.ANESASSM_ITS ---
Pre-Anesthetic Assessment Height/Weight: Height 1.68 m Operation Date: 08/23/23 07:00 Proposed Procedures p Total vaginal hysterectomy, left salpingo-oophorectomy 25030, R10.2,N94.6,N80.9(Not Applicable) - Arik Valderrama MD s Salpingo-Oophorectomy (Vaginal)(Left) - Arik Valderrama MD Social No alcohol and No tobacco Airway Submandibular: Other (marginal/receeding) Cervical ROM: within normal limits Mallampati: Class II Pulmonary Sleep Apnea CV/HEM Hypertension GI Gastroesophageal Reflux Disease Metabolic Morbid Obesity Anesthetic Plan ASA status: 3 Anesthesia: General Medications/Allergies Home Medications Medication Instructions Recorded Confirmed Last Taken Type lisinopril 5 mg tablet 5 mg PO DAILY #90 tabs 03/16/23 08/19/23 08/19/23 Rx omeprazole 20 mg capsule,delayed 20 mg PO DAILY #90 caps 07/12/23 08/19/23 08/19/23 Rx release venlafaxine 75 mg capsule,extended 75 mg PO DAILY #90 caps 07/12/23 08/19/23 08/19/23 Rx release 24 hr (Effexor XR) Allergies Allergy/AdvReac Type Severity Reaction Status Date / Time No Known Allergies Allergy Verified 08/19/23 12:12 [facility] Anesthesia Medical History Pre-diabetes Urolithiasis No pertinent past medical history neghx: htn, dm, thyroid, dvt/pe PCP: Dr. Ojeda History of LEEP (loop electrosurgical excision procedure) of cervix complicating Ovarian cyst Surgical History H/O oophorectomy CYST ON OVARY EXCISED Status post laser lithotripsy of ureteral calculus August 2022, RIGHT distal ureteral stone. Temporary stent History of local excision of skin lesion rectal History of loop electrical excision procedure (LEEP) X2 Family History Father Colon cancer Diabetes Mother Thyroid disease Denies family history of Cervical cancer Ovarian cancer Prostate cancer Clotting disorder Heart disease Hyperlipidemia Breast cancer Bleeding disorder Hypertension Uterine cancer Stroke Social History Smoking and tobacco/nicotine status: never used tobacco/nicotine Alcohol intake: current Alcohol intake frequency: holidays/special occasions only Substance/Drug Use: never Adopted: No Household members: family and children Housing: Manufactured/Mobile home Marital status: Legally service: No Current occupational status: employed Current occupation: [employer] for the [employer] Data Anesthesia 08/19/23 12:30 08/19/23 12:30 Short CBC 08/19/23 Range/Units 12:30 WBC 9.47 (3.29-11.43) 10^3/uL Hgb 12.50 (11.27-16.99) g/dL Hct 39.7 (36-47) % MCV 80.4 L (85-98) fl Plt Count 407 H (157-399) 10^3/cmm Neut % (Auto) 68.2 % Neut # (Auto) 6.46 (1.8-7.7) 10^3/uL BMP 08/19/23 12:30 Sodium 140 Potassium 3.6 Chloride 103 Carbon Dioxide 25 BUN 12 Creatinine 0.9 Glucose 90 Calcium 9.7 Cardiac Studies: 2 No Data to Display
[2023-08-31] VITALS (18 sets, daily range): BP systolic 97–144; BP diastolic 53–92; PULSE 66–105; RESP 7–21; TEMP 36.1–36.7; O2SAT 93–100
[2023-08-31 10:24] LABS: Add Urine Microscopic? YES; Bilirubin Urine Neg (Negative); Blood Urine Neg (Negative); Glucose Urine UA Norm (Normal); Ketones Urine Negative (Negative); Leukocyte Esterase Urine Negative (Negative); Nitrate Urine Negative (Negative); Protein Urine Neg (Negative); Urine Appearance SL Hazy (CLEAR); Urine Color Yellow (Yellow); Urobilinogen Urine Norm (Negative); pH Urine 6 (5-7)
[2023-08-31 10:46] LABS: Add Urine Culture? No; Bacteria Urine 1+ /hpf; Mucus Urine TRACE /hpf; RBC Urine 0-4 /hpf (0-2); Squamous Epithelial Cell Urine 0-4 /hpf (0-5); Transitional Epi Cells Urine 0-4 /hpf
[2023-08-31] MEDS: scopolamine 1.5 Patch 1 PATCH TRANSDERMA (10:46)
[2023-08-31] MEDS: sodium chloride 0.9% 1,000 ML 30 ML IV (10:47)
[2023-08-31] MEDS: sodium chloride 0.9% 500 ML IV (10:48)
[2023-08-31 11:12] LABS: OR HCG Qualitative Urine Negative (Negative)
[2023-08-31 11:12] LABS: Basophils # 0.1 10^3/uL (0.0-0.1); Basophils % 0.5 %; Eosinophils # 0.1 10^3/uL (0.0-0.8); Eosinophils % 1.2 %; Hematocrit 36.9 % (36-47); Lymphocytes # 2.8 10^3/uL (0.8-4.8); Lymphocytes % 23.4 %; Mean Corpuscular HGB Conc 31.7 g/dL (30-55); Mean Corpuscular Hemoglobin 25.6 pg (27-33); Mean Corpuscular Volume 80.7 fl (85-98); Mean Platelet Volume 9.7 fL (7.4-10.4); Monocytes # 0.7 10^3/uL (0.2-0.9); Monocytes % 5.8 %; Neutrophils # 8.08 10^3/uL (1.8-7.7); Neutrophils % 68.6 %; Nucleated Red Blood Cells % 0 %; Platelet Count 358 10^3/cmm (157-399); Red Blood Count 4.57 10^6/uL (3.85-5.65); White Blood Count 11.77 10^3/uL (3.29-11.43)
[2023-08-31 11:27] LABS: Alanine Aminotransferase 10 U/L (0-33); Albumin Level 3.9 g/dL (3.5-5.2); Alkaline Phosphatase 92 U/L (35-105); Aspartate Amino Transferase 11 U/L (0-32); Blood Urea Nitrogen 12 mg/dL (6-20); Calcium 9.2 mg/dL (8.5-10.5); Carbon Dioxide 25 mmol/L (22-29); Chloride 103 mmol/L (98-107); Creatinine Clr Calc Pharmacy 127.5606; Globulin 2.8 g/dL (1.3-4.6); Glomerular Filtration Rate 81.2 mL/min (90-130); Glucose 101 mg/dL (65-115); Osmolality Calculated 288 mOsm/kg (285-295); Sodium 139 mmol/L (136-145); Total Bilirubin 0.9 mg/dL (0.15-1.2); Total Protein 6.7 g/dL (6.6-8.7)
[2023-08-31 11:30] LABS: Anion Gap 14.7 (5-19); Potassium 3.7 mmol/L (3.5-5.1)
--- NOTE | 2023-08-31 11:38 | W.PM.OPSUD ---
Surgery/Procedure H&P Update DATE OF PROCEDURE: August 31, 2023 DATE H&P PERFORMED: 08/15/23 H&P UPDATE INFORMATION: I have reviewed H&P completed within last 30 days, I have examined patient prior to procedure and No changes to prior documentation PREOP DIAGNOSIS: Chronic pelvic pain, endometriosis PLANNED PROCEDURE: Operation Date: 08/31/23 12:00 Proposed Procedures p Total vaginal hysterectomy, left salpingo-oophorectomy 43461, R10.2,N94.6,N80.9(Not Applicable) - Arik Valderrama MD s Salpingo-Oophorectomy (Vaginal)(Left) - Arik Valderrama MD
[2023-08-31] MEDS: ceFOXitin 2,000 MG in sodium chloride 0.9% (plus) 50 ML 100 MG IV (12:18)
[2023-08-31] MEDS: lidocaine-epi 2% 20 mL INJ (13:09)
--- NOTE | 2023-08-31 14:14 | ANES.PAUD2 ---
Pre-Anesthetic Update Pre-Anesthetic Assessment: Date of Surgery/Procedure: 08/31/23 Preop Diagnosis: Chronic pelvic pain, endometriosis Proposed Procedure: Operation Date: 08/31/23 12:00 Proposed Procedures p Total vaginal hysterectomy, left salpingo-oophorectomy 71758, R10.2,N94.6,N80.9(Not Applicable) - Arik Valderrama MD s Salpingo-Oophorectomy (Vaginal)(Left) - Arik Valderrama MD Any changes to Pre-Anesthetic Assessment?: No Last Intake: Intake Last Liquid Date 08/30/23 Last Liquid Time 23:00 Last Solid Date 08/30/23 Last Solid Time 23:00 Labs Last 48hrs: Short CBC 08/31/23 Range/Units 10:50 WBC 11.77 H (3.29-11.43) 10^ 3/uL Hgb 11.70 (11.27-16.99) g/ dL Hct 36.9 (36-47) % MCV 80.7 L (85-98) fl Plt Count 358 (157-399) 10^3/c mm Neut % (Auto) 68.6 % Neut # (Auto) 8.08 H (1.8-7.7) 10^3/u L BMP 08/31/23 10:50 Sodium 139 Potassium 3.7 Chloride 103 Carbon Dioxide 25 BUN 12 Creatinine 0.8 Glucose 101 Calcium 9.2 Liver Function 08/31/23 Range/Units 10:50 Total Bilirubin 0.9 (0.15-1.2) mg/dL AST 11 (0-32) U/L ALT 10 (0-33) U/L Alkaline Phosphata se 92 (35-105) U/L Albumin 3.9 (3.5-5.2) g/dL Urine 08/31/23 Range/Units 10:12 Urine Color Yellow (Yellow) Urine Appearance Sl hazy A (CLEAR) Urine pH 6 (5-7) Ur Specific Gravit y 1.030 (1.005-1.030) Urine Protein Neg (Negative) Urine Glucose (UA) Norm (Normal) Urine Ketones Negative (Negative) Urine Nitrate Negative (Negative) Urine Bilirubin Neg (Negative) Ur Leukocyte Zo [place] Negative (Negative) Urine RBC 0-4 H (0-2) /hpf Urine WBC 5-10 H (0-5) /hpf Blood Bank 08/31/23 10:50 Blood Type O Positive Rho(D) Type Rh positive Antibody Screen Negative Vitals: Temperature 97.6 F 08/31/23 09:59 Temperature Source Temporal Artery S can 08/31/23 09:59 Pulse Rate 88 08/31/23 09:59 Pulse Rhythm Regular 08/31/23 10:49 Pulse Strength 3+ Normal 08/31/23 10:49 Respiratory Rate 18 08/31/23 09:59 Blood Pressure 144/92 08/31/23 09:59 Blood Pressure Anca n 109 08/31/23 09:59 Pulse Oximetry 96 08/31/23 09:59 Oxygen Delivery Me thod Room Air 08/31/23 10:49 Exam: Pre-Anes Outpt Exam: alert, oriented x 3, clear to auscultation bilaterally and regular rate & rhythm Cardiac Studies: No Data to Display
--- NOTE | 2023-08-31 14:55 | P.OP_ITS ---
Operative Report Date of procedure: August 31, 2023 Pre-op diagnosis: Pelvic pain Dysmenorrhea Post-op diagnosis: Same Procedure done: Total vaginal hysterectomy Specimens removed/disposition: Uterus Surgeon: Arik Valderrama MD Estimated blood loss (mL): 500 IV fluids (mL): 1,600 Urine output (mL): 300 Complications: Bleeding Procedure: After informed consent and risks, benefits, indications and alternatives reviewed with the patient was taken to the operating room. The patient was placed in dorsal lithotomy position prepped, and draped in the usual sterile fashion. The pre-procedure timeout verifying the correct patient, procedure, site and side, could not requirements was performed and acknowledge by the OR team. A Freedman catheter was placed. A Bookwalter vaginal retractor was placed into the vagina in usual manner visualize the cervix. Cervix was grasped with a single tooth tenaculum and circumferentially infiltrated with 2% lidocaine with epinephrine. Then cervix was circumferentially incised with bovie and the bladder was dissected off the pubovesical cervical fascia anteriorly with a spon ge stick and Metzenbaum scissors. The anterior peritoneal reflection was identified and the anterior cul-de-sac was entered sharply with Metzenbaum scissors. The same procedure was performed posteriorly and a posterior colpotomy was made through the posterior cul-de-sac space without difficulty and the posterior blade of the Bookwalter vaginal retractor was advanced posteriorly into the cul-de-sac. At this time, the left and right uterosacral ligaments were isolated and ligated with 0 Vicryl. The LigaSure device was placed over the uterosacral ligaments on either side and was then used in a serial fashion up through the cardinal ligaments bilaterally cross-clamped, cut, and sealed with the LigaSure device. Finally, the uterine arteries were cross-clamped, cut, sealed and ligated with the LigaSure device. Hemostasis was assured. The broad ligaments were then serially clamped, sealed and cut with the LigaSure device on both sides. Excellent hemostasis was visualized. Both cornua were clamped, sealed and cut with the LigaSure device. Then the pedicles were then suture ligated with excellent hemostasis. The uterus was excised and submitted for pathologic evaluation. No other ab normalities were noted in the pelvic cavity. Attempt to identify left ovary for removal was unsuccessful due to body habitus. The peritoneum was then closed in a pursestring fashion with 0 Vicryl suture. The vaginal cuff angles were closed with [id number] #0 Vicryl suture on both sides and transfixed with the ipsilateral cardinal and uterosacral ligaments. The remainder of the vaginal cuff was closed with #0 Vicryl in a running locked fashion. Indigocarmine was given IV. At this time, instruments were removed from the vagina at hemostasis assured. Freedman catheter was then noted yielding clear bryn and blue urine. A vaginal packing with Premarin cream was placed and the patient was taken out of dorsal lithotomy position and awakened from the general anesthesia. The patient ramon ated the procedure well and was taken to the PACU recovery room in a stable condition. Sponge, lap, needle and instruments counts were correct x3.
[2023-08-31] MEDS: fentaNYL 50 mcg/mL INJ 2mL IVP (15:13)
--- NOTE | 2023-08-31 15:55 | PC.NURSE ---
1545 - BP reported to anesthesia at bedside prior to transfer to OB - OK to move pt to floor
--- NOTE | 2023-08-31 15:57 | ANE.PACU2 ---
Inpatient post-anesthesia follow up: Airway intact: Yes Vital signs: Temperature 98.1 F Pulse Rate 71 Respiratory Rate 11 Blood Pressure 103/61 Pulse Oximetry 95 Oxygen Delivery Me thod Room Air Oxygen Flow Rate 6 Fraction of Inspir ed Oxygen Hydration adequate: Yes Nausea and vomiting: No Pain level: 4 Mental status: Baseline
[2023-08-31] MEDS: HYDROcodone-acetaminophen 5-325 mg Tablet PO (16:15)
[2023-08-31] MEDS: dextrose 5%-lactated ringers 1,000 ML 125 ML IV (16:16)
[2023-08-31] MEDS: docusate sodium 100 mg Capsule PO (21:02)
[2023-08-31] MEDS: ketorolac 30 mg/mL INJ IVP (21:03)
[2023-09-01] MEDS: dextrose 5%-lactated ringers 1,000 ML 125 ML IV (00:05)
[2023-09-01] MEDS: HYDROcodone-acetaminophen 5-325 mg Tablet PO (01:28)
[2023-09-01] MEDS: ketorolac 30 mg/mL INJ IVP (02:52)
[2023-09-01 05:09] VITALS: BP 106/58; PULSE 65; RESP 16; TEMP 36.6; O2SAT 96
[2023-09-01 05:11] LABS: Hematocrit 27.4 % (36-47); Mean Corpuscular HGB Conc 32.1 g/dL (30-55); Mean Corpuscular Hemoglobin 25.7 pg (27-33); Mean Corpuscular Volume 80.1 fl (85-98); Mean Platelet Volume 9.9 fL (7.4-10.4); Platelet Count 346 10^3/cmm (157-399); Red Blood Count 3.42 10^6/uL (3.85-5.65); Red Cell Distribution Width 14.9 % (12.1-15.1); White Blood Count 15.62 10^3/uL (3.29-11.43)
--- NOTE | 2023-09-01 10:15 | P.DS_ITS ---
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 Easton is a 37 year old with a history of chronic pelvic pain, dysmenorrhea and endometriosis admitted for planned total vaginal hysterectomy and left salpingo-oophorectomy. A total vaginal hysterectomy was performed, but left oophorectomy was not possible as the left ovary could not be safely identified. Overnight postoperative observation was uneventful. Tolerating diet well. Ambulating without difficulty. Pain was under control. She is afebrile and hemodynamically stable postoperative day 1. Patient was counseled regarding pelvic rest for 6 weeks (no sex, no tampons, no vaginal douches). Return to the emergency room if any fever, increased bleeding or pain. Physical Exam Narrative: GA: Alert and oriented ?3. HEENT: WNL. Heart: Regular rate and rhythm. Lungs: Clear to auscultation bilaterally. Abdomen: Bowel sounds present, nontender. ANIMAL BIOLOGIST: Spotting bleeding. Extremities: No edema, no cyanosis, no calves pain. Urinary Catheter Management: Freedman: Cath Placed During This Visit: yes, but has since been removed by the nurse Reason for Continuing Indwelling Catheter: Decision to DC Catheter Urinary Catheter Date of Insertion: 08/31/23 Urinary Catheter Time of Insertion: 12:48 Date Urinary Catheter Removed: 09/01/23 Time Urinary Catheter Discontinued: 05:00 History History History 3 Term 1 0 Miscarriages/Ectopic 2 Living Children 1 Discharge Data Studies Completed and Pending Pending at discharge Category Date Time Status Pathology: Surgical [PTH] Routine Pth 08/31/23 14:30 Received Laboratory Results WBC 15.62 10^3/uL (3.29-11.43) H 09/01/23 05:00 RBC 3.42 10^6/uL (3.85-5.65) L 09/01/23 05:00 Hgb 8.80 g/dL (11.27-16.99) L 09/01/23 05:00 Hct 27.4 % (36-47) L 09/01/23 05:00 MCV 80.1 fl (85-98) L 09/01/23 05:00 MCH 25.7 pg (27-33) L 09/01/23 05:00 MCHC 32.1 g/dL (30-55) 09/01/23 05:00 RDW 14.9 % (12.1-15.1) 09/01/23 05:00 Plt Count 346 10^3/cmm (157-399) 09/01/23 05:00 MPV 9.9 fL (7.4-10.4) 09/01/23 05:00 Neut % (Auto) 68.6 % 08/31/23 10:50 Lymph % (Auto) 23.4 % 08/31/23 10:50 [place] % (Auto) 5.8 % 08/31/23 10:50 Eos % (Auto) 1.2 % 08/31/23 10:50 Baso % (Auto) 0.5 % 08/31/23 10:50 Neut # (Auto) 8.08 10^3/uL (1.8-7.7) H 08/31/23 10:50 Lymph # (Auto) 2.8 10^3/uL (0.8-4.8) 08/31/23 10:50 [place] # (Auto) 0.7 10^3/uL (0.2-0.9) 08/31/23 10:50 Eos # (Auto) 0.1 10^3/uL (0.0-0.8) 08/31/23 10:50 Baso # (Auto) 0.1 10^3/uL (0.0-0.1) 08/31/23 10:50 Nucleated RBC % (auto) 0 % 08/31/23 10:50 Nucleated RBCs # 0.0 /100WBC 08/31/23 10:50 Sodium 139 mmol/L (136-145) 08/31/23 10:50 Potassium 3.7 mmol/L (3.5-5.1) 08/31/23 10:50 Chloride 103 mmol/L (98-107) 08/31/23 10:50 Carbon Dioxide 25 mmol/L (22-29) 08/31/23 10:50 Anion Gap 14.7 (5-19) 08/31/23 10:50 BUN 12 mg/dL (6-20) 08/31/23 10:50 Creatinine 0.8 mg/dL (0.5-0.9) 08/31/23 10:50 GFR Calculation 81.2 mL/min (90-130) L 08/31/23 10:50 Glucose 101 mg/dL (65-115) 08/31/23 10:50 Calculated Osmolality 288 mOsm/kg (285-295) 08/31/23 10:50 Calcium 9.2 mg/dL (8.5-10.5) 08/31/23 10:50 Total Bilirubin 0.9 mg/dL (0.15-1.2) 08/31/23 10:50 AST 11 U/L (0-32) 08/31/23 10:50 ALT 10 U/L (0-33) 08/31/23 10:50 Alkaline Phosphatase 92 U/L (35-105) 08/31/23 10:50 Total Protein 6.7 g/dL (6.6-8.7) 08/31/23 10:50 Albumin 3.9 g/dL (3.5-5.2) 08/31/23 10:50 Globulin 2.8 g/dL (1.3-4.6) 08/31/23 10:50 Urine Color Yellow (Yellow) 08/31/23 10:12 Urine Appearance Sl hazy (CLEAR) A 08/31/23 10:12 Urine pH 6 (5-7) 08/31/23 10:12 Ur Specific [place] 1.030 (1.005-1.030) 08/31/23 10:12 Urine Protein Neg (Negative) 08/31/23 10:12 Urine Glucose (UA) Norm (Normal) 08/31/23 10:12 Urine Ketones Negative (Negative) 08/31/23 10:12 Urine Blood Neg (Negative) 08/31/23 10:12 Urine Nitrate Negative (Negative) 08/31/23 10:12 Urine Bilirubin Neg (Negative) 08/31/23 10:12 Urine Urobilinogen Norm mg/dL (Negative) 08/31/23 10:12 Ur Leukocyte Esterase Negative (Negative) 08/31/23 10:12 Urine RBC 0-4 /hpf (0-2) H 08/31/23 10:12 Urine WBC 5-10 /hpf (0-5) H 08/31/23 10:12 Ur Squamous Epith Cells 0-4 /hpf (0-5) H 08/31/23 10:12 Ur Transition Epith Cell 0-4 /hpf 08/31/23 10:12 Amorphous Sediment Not Reportable 08/31/23 10:12 Urine Bacteria 1+ /hpf (NONE) H 08/31/23 10:12 Urine Mucus Trace /hpf 08/31/23 10:12 Urine HCG, Qual Negative (Negative) 08/31/23 10:00 Blood Type O Positive 08/31/23 10:50 Rho(D) Type Rh positive 08/31/23 10:50 Antibody Screen Negative 08/31/23 10:50 Vitals Last Vital Signs Temp 97.9 F 09/01/23 05:09 Pulse 65 09/01/23 05:09 Resp 16 09/01/23 05:09 BP 106/58 09/01/23 05:09 Pulse Ox 96 09/01/23 05:09 O2 Del Method Room Air 08/31/23 15:53 O2 Flow Rate 6 08/31/23 15:29 Results Labs OB ([facility]): Blood Type O Positive 08/31/23 Antibody Screen Negative 08/31/23 Hct 27.4 % (36-47) L 09/01/23 Hgb 8.80 g/dL (11.27-16.99) L 09/01/23 Rho(D) Type Rh positive 08/31/23 Plt Count 346 10^3/cmm (157-399) 09/01/23 TSH 0.67 uIU/mL (0.27-4.20) 02/15/23 Free T4 1.27 ng/dL (0.82-1.77) 02/15/23 Hemoglobin A1c 4.8 % (4.0-6.0) 02/15/23 HCG, Qual Negative (Negative) 04/14/23 Micro Urine Specimen 02/16/22 Pap Smear Interpret See note 04/14/23 Discharge Plan Discharge Patient Disposition: Home Condition: Stable Prescriptions: New hydrocodone-acetaminophen 5-325 mg tablet 1 tab PO Q4H PRN (Reason: pain) Qty: 20 0RF acetaminophen 325 mg capsule 325 mg PO Q4H PRN (Reason: fever or pain) Qty: 60 0RF docusate sodium [Colace] 100 mg capsule 100 mg PO BID Qty: 60 0RF ibuprofen 800 mg tablet 800 mg PO TID PRN (Reason: pain) Qty: 60 0RF ferrous sulfate [Iron (ferrous sulfate)] 325 mg (65 mg iron) tablet 325 mg PO BID Qty: 60 0RF Continued lisinopril 5 mg tablet 5 mg PO DAILY Qty: 90 0RF venlafaxine [Effexor XR] 75 mg capsule,extended release 24hr 75 mg PO DAILY Qty: 90 1RF omeprazole 20 mg capsule,delayed release(DR/EC) 20 mg PO DAILY Qty: 90 1RF Discharge Orders: Discharge Order (Routine); Ordered 09/01/23 Ordered By: Arik Valderrama Referrals: Arik Valderrama MD [Physician] - 2 weeks Discharge Diet: GI Soft Discharge Activity: Limit activity as instructed Patient Instructions: Ibuprofen (By mouth), Hysterectomy (DC), Vaginal Hysterectomy (DC), OB Discharge Report, OB Anesthesia Instructions, Opioid Safety Activity Restrictions/Additional Instructions: 1. Please call [facility] on next working day to make your post-operative appointment in 2 weeks. 2. Please stay home until you come back to the clinic on first post- hospatilization check up. 3. Please follow instructions on your medications CAREFULLY. 4. If you have abdominal incision, do not cover it unless dressing is necessary because of drainage. OK to shower, but avoid bath. Leave steri-strips until they fall off. If they are still on one week after surgery, you may remove them. 5. If you had vaginal surgery or vaginal repair, Dr. Valderrama may instruct you to take SITZ bath. 6. Yellow, blood tinged odorous vaginal discharge is usually normal after hysterectomy or vaginal surgeries. 7. No SEXUAL INTERCOURSE, tampons, or douches until you are completely released from the post-operative care. 8. Avoid constipation by eating right and maybe using some Metamucil or Milk of Magnesia. 9. All prescription refills are given during the working hours. Please do no wait till it runs out. Call the clinic at [phone] before your medication runs out. The clinic will get in touch with your doctor to prescribe medications if necessary. 10. Please remain within 40 mile radius from our hospital because emergencies do happen now and then during the post-operative period. 11. If you have stairs at home, take one step at a time slowly and minimize the number of trips. It helps to stay in one floor for the next few days. No lifting except what you can lift by one hand until you are released from the post-operative care. 12. Driving is discouraged until you are well healed. It may be 3-4 weeks before you feel strong enough to drive. You should be able to turn and look through the rear window without pain and you should be able to push the brake pedal very hard without pain before you drive. No fast rules, but SAFETY should be your primary concern. DO NOT drive if you are on sedating medications such as narcotics. 13. Call the clinic (during working hours) to make urgent appointment or go to the Emergency room, if any of the following occurs: i. Vaginal bleeding becomes heavy, more than a period. ii. Incision becomes red and sore, or drains pus. iii. Your TEMPERATURE is over 100.4F or you have chill. iv. IV site becomes red and swollen (a little ``knot?? is usually OK) v. Persistent nausea and vomiting vi. Persistent constipation or diarrhea vii. Rash or allergic reaction to medications. 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
[2023-09-01 11:11] VITALS: BP 137/83; PULSE 76; RESP 16; TEMP 36.8; O2SAT 98
== END 2023-09-01 11:10 | disposition home or self-care (01) ==
LOC: OBGYN 15:34
PROVIDERS: Anesthesiology; Admitting Provider Obstetrics & Gynecology; PCP Nurse Practitioner Family; Visit Provider Obstetrics & Gynecology
PROC: (CPT 58260; principal; 2023-08-31 12:00)
DX: N94.6 Dysmenorrhea, unspecified (principal); N80.30 Endometriosis of pelvic peritoneum, unspecified; G47.30 Sleep apnea, unspecified; I10 Essential (primary) hypertension; K21.9 Gastro-esophageal reflux disease without esophagitis; E66.01 Morbid (severe) obesity due to excess calories; Z68.41 Body mass index [BMI] 40.0-44.9, adult
CPT/HCPCS: 58260; 36415; 80048; 80053; 81001; 81025; 84703; 85025; 85027; 86850; 86900; 88307; G0378; J0131; J0694; J1100; J1200; J1885; J2250; J2405; J2704; J3010; J3490; J7030; J7040; J7121; P9045

== ENCOUNTER → 2024-01-23 11:21 | Outpatient (BNVA) | payer MEDICAID, SELFPAY | PROVIDERS: PCP Nurse Practitioner Family; Visit Provider Nurse Practitioner Family | DX: I10 Essential (primary) hypertension (principal); D50.0 Iron deficiency anemia secondary to blood loss (chronic); R53.83 Other fatigue | CPT/HCPCS: 80053; 80061; 82607; 83550; 85025 ==

== ENCOUNTER → 2024-11-06 16:39 | Outpatient (BNVA) | payer MEDICAID, SELFPAY | PROVIDERS: PCP Nurse Practitioner Family; Referring Provider Nurse Practitioner Family; Visit Provider Nurse Practitioner Family | DX: R19.7 Diarrhea, unspecified (principal) | CPT/HCPCS: 87045; 87427; 87449; 87493 ==

== ENCOUNTER → 2025-03-15 14:53 | Outpatient (BNVA) | payer MEDICAID, SELFPAY | PROVIDERS: PCP Nurse Practitioner Family; Visit Provider Nurse Practitioner Family | DX: R39.9 Unspecified symptoms and signs involving the genitourinary system (principal) | CPT/HCPCS: 81000 ==